=== PATIENT | female | born 1955 | race Caucasian/White ===

== ENCOUNTER 2017-04-10 21:12 | Emergency (ER) | payer OTHER ==
[2017-04-10 21:29] VITALS: RESP 18
[2017-04-10] MEDS ORDERED: TOPICAL SKIN ADHESIVE 1 EACH AMP TOPICAL ONE (22:28)
--- NOTE | 2017-04-10 23:47 | ED ---
Wound/Laceration HPI - General Chief Complaint: Wound/Laceration Stated Complaint: Bleed Post Sx-Pt on Blood Thinner Time Seen by Provider: 04/10/17 22:05 Source: patient, RN notes reviewed Mode of arrival: wheelchair Limitations: no limitations - History of Present Illness Initial Comments: 62-year-old female presents emergency department chief complaint of bleeding incision to the left leg. Patient had a cyst removed today at the doctor's office and has noticed some bleeding from the area. Patient states that she was concerned so she thought they should be seen. Patient states that he tried direct pressure home which did not stop the bleeding. Patient denies any recent fever, chills, shortness of breath, chest pain, back pain, abdominal pain, nausea vomiting, numbness or tingling, dysuria or hematuria, constipation or diarrhea, headaches or visual changes, or any other current symptoms. - Related Data Home Medications Medication Instructions Recorded Confirmed Potassium Chloride [K-Tab ER] 10 meq PO DAILY 07/24/16 04/10/17 Furosemide [Lasix] 20 mg PO DAILY 04/10/17 04/10/17 Magnesium Slow 71.5mg 71.5 mg PO BID 04/10/17 04/10/17 Metoprolol Tartrate [Lopressor] 12.5 mg PO DAILY 04/10/17 04/10/17 Omeprazole [PriLOSEC] 20 mg PO DAILY 04/10/17 04/10/17 Rivaroxaban [Xarelto] 20 mg PO HS 04/10/17 04/10/17 Previous Rx's Medication Instructions Recorded Lisinopril [Zestril] 5 mg PO DAILY #30 tab 02/14/16 Flecainide [Tambocor] 100 mg PO Q12HR tab 07/26/16 Allergies Allergy/AdvReac Type Severity Reaction Status Date / Time CARDIOVERSION PAD AdvReac Unknown RED RASH, Uncoded 07/24/16 11:42 ITCHING FROM PAD USED ON CHEST FOR CARDIOVERSION. Review of Systems ROS Statement: Those systems with pertinent positive or pertinent negative responses have been documented in the HPI. ROS Other: All systems not noted in ROS Statement are negative. Past Medical History Past Medical History: Atrial Fibrillation, Heart Failure, GERD/Reflux, Hypertension Additional Past Medical History / Comment(s): PALPITATIONS, HX OF BRAIN ANEURYSM IN [place] SEE CARDIOLOGY H & P, Obesity. History of Any Multi-Drug Resistant Organisms: None Reported Past Surgical History: Appendectomy, Hysterectomy, Tonsillectomy Additional Past Surgical History / Comment(s): D & C'S Past Anesthesia/Blood Transfusion Reactions: Motion Sickness, Postoperative Nausea & Vomiting (PONV) Additional Past Anesthesia/Blood Transfusion Reaction / Comment(s): SISTER =PONV Past Psychological History: No Psychological Hx Reported Smoking Status: Never smoker - Past Family History Father Family Medical History: AICD/Pacemaker Mother Family Medical History: Congestive Heart Failure (CHF) General Exam - General Exam Comments Initial Comments: General: The patient is awake and alert, in no distress, and does not appear acutely ill. Neck: The neck is supple, there is no tenderness. Cardiovascular: There is a regular rate and rhythm. No murmur, rub or gallop is appreciated. Respiratory: Lungs are clear to auscultation, respirations are non-labored, breath sounds are equal. No wheezes, stridor, rales, or rhonchi. Musculoskeletal: Sensation intact with 2+ pulses of left lower externa. Full range of motion of left knee and left ankle. Patient does appear to have a laceration that has 3 sutures to the anterior left danielson that does have some bruising noted. 5 out of 5 muscle strength testing. No associated hematoma noted. Neurological: CN II-XII intact, There are no obvious motor or sensory deficits. Coordination appears grossly intact. Speech is normal. Skin: Skin is warm and dry and no rashes or lesions are noted. Psychiatric: Normal mood and affect. Limitations: no limitations Course Vital Signs 04/10/17 21:27 Temperature 98.8 F Pulse Rate 50 L Respiratory 18 Rate Blood Pressure 146/60 O2 Sat by Pulse 99 Oximetry Medical Decision Making - Medical Decision Making 62-year-old female from chief complaint of bleeding from her left danielson. At this time the bleeding was stopped with Dermabond. At this time we did discuss care follow-up return parameters. We discussed all the patient's family's questions. He stated the João they are in agreement with the plan. All questions have been answered. They will be discharged. Disposition Clinical Impression: Bleeding at insertion site Disposition: HOME SELF-CARE Condition: Stable Instructions: Skin Adhesive Care (ED) Additional Instructions: Please use medication as discussed. Please follow up with family doctor if symptoms have not improved over the next two days. Please return to the emergency room if your symptoms increase or worsen or for any other concerns. Referrals: Jordyn Andrews MD [Primary Care Provider] - 1-2 days Time of Disposition: 23:46
[2017-04-10 23:54] VITALS: BP 148/67; PULSE 62; TEMP 98
== END 2017-04-10 23:54 | disposition home or self-care (01) ==
LOC: EC 21:12
DX: L76.22 Postprocedural hemorrhage of skin and subcutaneous tissue following other procedure (principal); I48.91 Unspecified atrial fibrillation; K21.9 Gastro-esophageal reflux disease without esophagitis; I10 Essential (primary) hypertension; Z86.79 Personal history of other diseases of the circulatory system; I50.9 Heart failure, unspecified; Z88.8 Allergy status to other drugs, medicaments and biological substances; Z79.899 Other long term (current) drug therapy; Z79.01 Long term (current) use of anticoagulants; E66.9 Obesity, unspecified
CPT/HCPCS: 12001; 99282

== ENCOUNTER → 2017-04-14 | Outpatient (CLI) | payer OTHER ==
[2017-04-14 08:29] LABS: Basophils # (A) 0.1 k/uL (0-0.2); Basophils % (A) 1 %; CH 29.6; CHCM 32.1; Eosinophils # (A) 0.5 k/uL (0-0.7); Eosinophils % (A) 6 %; HCT 42.5 % (34.0-46.0); HDW 2.65; Luc # (Auto) 0.13; Luc % (Auto) 2; Lymphocytes % (A) 24 %; MCH 30.5 pg (25.0-35.0); MCHC 32.9 g/dL (31.0-37.0); MCV 92.7 fL (80.0-100.0); Mean Platelet Volume 7.8; Monocytes # (A) 0.4 k/uL (0-1.0); Monocytes % (A) 5 %; Neutrophils % (A) 63 %; RBC 4.58 m/uL (3.80-5.40); RDW 14.3 % (11.5-15.5); WBC (Perox) 8.38
[2017-04-14 08:38] LABS: ALT 28 U/L (9-52); AST 12 U/L (14-36); Alkaline Phosphatase 76 U/L (38-126); Anion Gap 8 mmol/L; Blood Urea Nitrogen 12 mg/dL (7-17); Calcium 9.1 mg/dL (8.4-10.2); Carbon Dioxide 28 mmol/L (22-30); Chloride 107 mmol/L (98-107); Cholesterol 209 mg/dL (<200); Glucose 82 mg/dL (74-99); HDL Cholesterol 57 mg/dL (40-60); Non-African American GFR(MDRD) >60 (>60 ml/min/1.73 sqM); Sodium 143 mmol/L (137-145); Total Bilirubin 0.5 mg/dL (0.2-1.3); Triglycerides 110 mg/dL (<150)
[2017-04-14 09:24] LABS: Total Protein 6.4 g/dL (6.3-8.2)
== END | disposition home or self-care (01) ==
LOC: LABWHC1 07:53
PROVIDERS: ATTEND Family Medicine
DX: I10 Essential (primary) hypertension (principal)
CPT/HCPCS: 36415; 80053; 80061; 84443; 85025

== ENCOUNTER 2018-03-25 18:56 | Emergency (ER) | payer BC ==
[2018-03-25 19:31] VITALS: RESP 18
[2018-03-25] MEDS ORDERED: MORPHINE SULFATE 2 MG/ML SYRINGE IVP STA (20:39)
[2018-03-25] MEDS ORDERED: ONDANSETRON 4 MG/2 ML VIAL IVP STA (20:39)
--- NOTE | 2018-03-25 20:51 | ED ---
General Adult HPI - General Chief complaint: Extremity Problem,Nontraumatic Stated complaint: LEG CRAMPS FROM HIPS TO KNEES Time Seen by Provider: 03/25/18 20:27 Source: patient, RN notes reviewed Mode of arrival: wheelchair Limitations: no limitations - History of Present Illness Initial comments: Patient is 62-year-old female presenting to the emergency room today with chief complaint of right hip pain radiating to the right knee. Patient does admit that she's had some symptoms of diarrhea over the last few days. She states this is not her main reason for coming to the emergency room today. She states last night she began having increased pain from the right hip shooting down to the right knee. She admits that she feels some similar sensation on the left ear she states she's had similar complaint to this several years ago. Denies any bowel or bladder incontinence retention. Denies any saddle anesthesia. Patient denies any injury or trauma to the area. She states it's worse with flexion and extension at the right hip. Denies any other complaint currently. Patient denies any recent fever, chills, shortness of breath, chest pain, back pain, vomiting, numbness or tingling, dysuria or hematuria, constipation, headaches or visual changes, or any other complaints. - Related Data Home Medications Medication Instructions Recorded Confirmed Potassium Chloride [K-Tab ER] 10 meq PO DAILY 07/24/16 03/25/18 Furosemide [Lasix] 20 mg PO DAILY 04/10/17 03/25/18 Magnesium Slow 71.5mg 71.5 mg PO BID 04/10/17 03/25/18 Metoprolol Tartrate [Lopressor] 12.5 mg PO DAILY 04/10/17 03/25/18 Omeprazole [PriLOSEC] 20 mg PO DAILY 04/10/17 03/25/18 Rivaroxaban [Xarelto] 20 mg PO HS 04/10/17 03/25/18 Dicyclomine [Bentyl] 10 mg PO BID PRN 03/25/18 03/25/18 L.acidoph,Paracasei, B.lactis 1 cap PO DAILY 03/25/18 03/25/18 [Probiotic] Previous Rx's Medication Instructions Recorded Lisinopril [Zestril] 5 mg PO DAILY #30 tab 02/14/16 Flecainide [Tambocor] 100 mg PO Q12HR tab 07/26/16 Orphenadrine [Norflex] 100 mg PO Q12H #20 tablet.er 03/25/18 Allergies Allergy/AdvReac Type Severity Reaction Status Date / Time CARDIOVERSION PAD AdvReac Unknown RED RASH, Uncoded 03/25/18 19:31 ITCHING FROM PAD USED ON CHEST FOR CARDIOVERSION. Review of Systems ROS Statement: Those systems with pertinent positive or pertinent negative responses have been documented in the HPI. ROS Other: All systems not noted in ROS Statement are negative. Past Medical History Past Medical History: Atrial Fibrillation, Heart Failure, GERD/Reflux, Hypertension Additional Past Medical History / Comment(s): PALPITATIONS, HX OF BRAIN ANEURYSM IN [place] SEE CARDIOLOGY H & P, Obesity. History of Any Multi-Drug Resistant Organisms: None Reported Past Surgical History: Appendectomy, Hysterectomy, Tonsillectomy Additional Past Surgical History / Comment(s): D & C'S Past Anesthesia/Blood Transfusion Reactions: Motion Sickness, Postoperative Nausea & Vomiting (PONV) Additional Past Anesthesia/Blood Transfusion Reaction / Comment(s): SISTER =PONV Past Psychological History: No Psychological Hx Reported Smoking Status: Never smoker Past Alcohol Use History: None Reported Past Drug Use History: None Reported - Past Family History Father Family Medical History: AICD/Pacemaker Mother Family Medical History: Congestive Heart Failure (CHF) General Exam - General Exam Comments Initial Comments: General: The patient is awake and alert, in no distress, and does not appear acutely ill. Eye: Pupils are equal, round and reactive to light, extra-ocular movements are intact. No nystagmus. There is normal conjunctiva bilaterally. No signs of icterus. Ears, nose, mouth and throat: There are moist mucous membranes and no oral lesions. Neck: The neck is supple, there is no tenderness or JVD. Cardiovascular: There is a regular rate and rhythm. No murmur, rub or gallop is appreciated. Respiratory: Lungs are clear to auscultation, respirations are non-labored, breath sounds are equal. No wheezes, stridor, rales, or rhonchi. Musculoskeletal: Patient shows limited range of motion of the right hip with flexion and extension due to pain. No specific bony tenderness on palpation. Sensation intact. Pulses equal bilaterally 2+. Neurological: A&O x 3. CN II-XII intact, There are no obvious motor or sensory deficits. Coordination appears grossly intact. Speech is normal. Skin: Skin is warm and dry and no rashes or lesions are noted. Psychiatric: Cooperative, appropriate mood & affect, normal judgment. Limitations: no limitations Course Vital Signs 03/25/18 19:28 Temperature 99.0 F Pulse Rate 67 Respiratory 18 Rate Blood Pressure 103/62 O2 Sat by Pulse 96 Oximetry Medical Decision Making - Medical Decision Making Patient reexamined at this time does admit to improving here in the emergency room after pain medications and muscle relaxer. Patient labs been reviewed does show potassium 2.9. Patient does take potassium supplement home. She does not that she had diarrhea last 2-3 days. May labs been reviewed. At this time patient doing well. Given potassium 40 mEq here in the emergency room by mouth. Patient will be discharged home advised to double her potassium intake for the next 2 days following up with family doctor have potassium rechecked. Will be given muscle laxer to continue for her symptoms. - Lab Data Result diagrams: 03/25/18 21:06 03/25/18 21:06 Lab Results 03/25/18 03/25/18 Range/Units 21:06 21:06 WBC 7.7 (3.8-10.6) k/uL RBC 4.51 (3.80-5.40) m/uL Hgb 13.9 (11.4-16.0) gm/dL Hct 40.0 (34.0-46.0) % MCV 88.6 (80.0-100.0) fL MCH 30.8 (25.0-35.0) pg MCHC 34.8 (31.0-37.0) g/dL RDW 14.3 (11.5-15.5) % Plt Count 252 (150-450) k/uL Neutrophils % 70 % Lymphocytes % 15 % Monocytes % 11 % Eosinophils % 1 % Basophils % 1 % Neutrophils # 5.4 (1.3-7.7) k/uL Lymphocytes # 1.2 (1.0-4.8) k/uL Monocytes # 0.9 (0-1.0) k/uL Eosinophils # 0.1 (0-0.7) k/uL Basophils # 0.0 (0-0.2) k/uL Sodium 138 (137-145) mmol/L Potassium 2.9 L* (3.5-5.1) mmol/L Chloride 102 (98-107) mmol/L Carbon Dioxide 21 L (22-30) mmol/L Anion Gap 15 mmol/L BUN 9 (7-17) mg/dL Creatinine 0.74 (0.52-1.04) mg/dL Est GFR (CKD-EPI)AfAm >90 (>60 ml/min/1.73 sqM) Est GFR (CKD-EPI)NonAf 88 (>60 ml/min/1.73 sqM) Glucose 102 H (74-99) mg/dL Calcium 9.0 (8.4-10.2) mg/dL Total Bilirubin 0.6 (0.2-1.3) mg/dL AST 13 L (14-36) U/L ALT 25 (9-52) U/L Alkaline Phosphatase 77 (38-126) U/L Total Protein 6.6 (6.3-8.2) g/dL Albumin 4.1 (3.5-5.0) g/dL Disposition Clinical Impression: Hypokalemia, Muscle cramps Disposition: HOME SELF-CARE Condition: Good Instructions: Muscle Cramp (ED) Additional Instructions: Please increase potassium supplement at home for the next 2 days. Please follow -up the family doctor to have potassium rechecked. Please use muscle relaxant for her symptoms but be aware that it may make you drowsy. Please return to emergency room if the symptoms increase or worsen. Prescriptions: Orphenadrine [Norflex] 100 mg PO Q12H #20 tablet.er Is patient prescribed a controlled substance at d/c from ED?: No Referrals: Jordyn Andrews MD [Primary Care Provider] - 1-2 days Time of Disposition: 22:36
[2018-03-25] MEDS ORDERED: ORPHENADRINE 30 MG/ML 2 ML VIAL IVP STA (21:35)
[2018-03-25 21:57] LABS: Basophils % (A) 1 %; Eosinophils # (A) 0.1 k/uL (0-0.7); Eosinophils % (A) 1 %; HGB 13.9 gm/dL (11.4-16.0); Lymphocytes # (A) 1.2 k/uL (1.0-4.8); Lymphocytes % (A) 15 %; MCH 30.8 pg (25.0-35.0); MCHC 34.8 g/dL (31.0-37.0); MCV 88.6 fL (80.0-100.0); Mean Platelet Volume 7.1; Monocytes # (A) 0.9 k/uL (0-1.0); Monocytes % (A) 11 %; Neutrophils # (A) 5.4 k/uL (1.3-7.7); Neutrophils % (A) 70 %; Platelet Count 252 k/uL (150-450); RBC 4.51 m/uL (3.80-5.40); RDW 14.3 % (11.5-15.5); WBC 7.7 k/uL (3.8-10.6)
--- NOTE | 2018-03-25 22:06 | XR ---
PROCEDURE: XR Hip RT and AP Pelvis 3 views DATE AND TIME: 03/25/2018 9:56 PM REFERRING PHYSICIAN: Lamont Ackerman CLINICAL INDICATION: PHH, Pain without injury. TECHNIQUE: Department protocol. COMPARISON: None FINDINGS: There is no fracture or malalignment. Moderate bilateral hip osteoarthritis changes are noted. No focal skeletal findings. The soft tissues are unremarkable. IMPRESSION: NO ACUTE PROCESS.
[2018-03-25 22:10] LABS: ALT 25 U/L (9-52); AST 13 U/L (14-36); Albumin 4.1 g/dL (3.5-5.0); Alkaline Phosphatase 77 U/L (38-126); Anion Gap 15 mmol/L; Blood Urea Nitrogen 9 mg/dL (7-17); Carbon Dioxide 21 mmol/L (22-30); Chloride 102 mmol/L (98-107); Glucose 102 mg/dL (74-99); Sodium 138 mmol/L (137-145); Total Bilirubin 0.6 mg/dL (0.2-1.3); Total Protein 6.6 g/dL (6.3-8.2)
[2018-03-25 22:20] LABS: Potassium 2.9 mmol/L (3.5-5.1)
[2018-03-25] MEDS ORDERED: POTASSIUM CHLORIDE ER 20 MEQ TAB.ER PO STA (22:25)
[2018-03-25] MEDS ORDERED: LORazepam 2 MG/ML INJ IV STA (22:35)
[2018-03-25 22:46] VITALS: BP 131/56; PULSE 70; TEMP 98.7
[2018-03-25] MEDS ORDERED: ONDANSETRON 4 MG ODT STARTER PACK 2 TAB BTL PO STA (23:01)
== END 2018-03-25 23:10 | disposition home or self-care (01) ==
LOC: EC 18:56
DX: E87.6 Hypokalemia (principal); I11.0 Hypertensive heart disease with heart failure; I50.9 Heart failure, unspecified; I48.91 Unspecified atrial fibrillation; K21.9 Gastro-esophageal reflux disease without esophagitis; E66.9 Obesity, unspecified; Z79.01 Long term (current) use of anticoagulants; Z79.899 Other long term (current) drug therapy; Z91.09 Other allergy status, other than to drugs and biological substances; Z68.34 Body mass index [BMI] 34.0-34.9, adult
CPT/HCPCS: 36415; 80053; 85025; 73502; 99283; 96374; 96375 ×3; J2060; J2360; J2405; J2270; S0119

== ENCOUNTER → 2018-04-10 | Outpatient (CLI) | payer BC ==
--- NOTE | 2018-04-10 14:49 | MR ---
MRCP HISTORY: Obstruction of bile duct Correlation to CT abdomen pelvis 04/06/2016, ultrasound gallbladder 04/15/2016 Multiplanar multisequence imaging through the biliary system, three-dimensional post processing was p erformed. There is abnormal signal suspected within the cecum which correlates with patient's CT finding, bowel surveillance has not been performed then it should be considered. The liver is enlarged. The gallbladder is hydropic and there are multiple luminal filling defects consistent with stones, th ere is a large stone in the region of the gallbladder neck. No evident stone within the common bile d uct. Toward the distal common bile duct, the duct measures 10 mm. At the distal duct however there is a rattail appearance compatible with possible underlying mass. No evident pancreatic ductal dilatati on. Lower pole cystic focus measuring 2.5 cm noted in the right kidney, upper pole cystic focus left kidney 15 mm. Adrenal glands unremarkable. Spleen unremarkable. IMPRESSION: Hydropic gallbladder with cholelithiasis. Gallbladder shows a stone in neck. There is an abrupt caliber change at the distal common bile duct. Consider gastroenterology consult for ERCP. Fin dings in the cecum as described. Consider bowel surveillance if this has not been performed.
== END | disposition home or self-care (01) ==
LOC: RADMRIMAIN 10:16
PROVIDERS: ATTEND Family Medicine
DX: K80.20 Calculus of gallbladder without cholecystitis without obstruction (principal); N28.1 Cyst of kidney, acquired
CPT/HCPCS: 74181

== ENCOUNTER → 2018-11-23 | Outpatient (CLI) | payer OTHER ==
[2018-11-23 16:45] LABS: Basophils # (A) 0.1 k/uL (0-0.2); Basophils % (A) 1 %; Eosinophils # (A) 0.3 k/uL (0-0.7); Eosinophils % (A) 3 %; HCT 43.5 % (34.0-46.0); HGB 14.2 gm/dL (11.4-16.0); Lymphocytes # (A) 2.1 k/uL (1.0-4.8); Lymphocytes % (A) 22 %; MCH 30.5 pg (25.0-35.0); MCHC 32.7 g/dL (31.0-37.0); MCV 93.2 fL (80.0-100.0); Mean Platelet Volume 7.3; Monocytes # (A) 0.5 k/uL (0-1.0); Monocytes % (A) 5 %; Neutrophils # (A) 6.5 k/uL (1.3-7.7); Neutrophils % (A) 68 %; Platelet Count 288 k/uL (150-450); RBC 4.67 m/uL (3.80-5.40); RDW 14.4 % (11.5-15.5); WBC 9.5 k/uL (3.8-10.6)
[2018-11-23 23:22] LABS: Albumin 4.6 g/dL (3.80-4.90); Albumin/Globulin Ratio 1.92 (1.60-3.17); Anion Gap 8.9 mmol/L (4.00-12.00); Calcium 9.6 mg/dL (8.7-10.3); Carbon Dioxide 26.1 mmol/L (21.6-31.8); Globulin 2.4 g/dL (1.6-3.3); Magnesium 1.9 mg/dL (1.5-2.4); Potassium 4.4 mmol/L (3.5-5.5); Total Bilirubin 0.5 mg/dL (0.3-1.2)
== END ==
LOC: LABWHC1 15:54
PROVIDERS: ATTEND Internal Medicine Cardiovascular Disease
DX: I48.91 Unspecified atrial fibrillation (principal)
CPT/HCPCS: 36415; 80053; 83735; 85025

== ENCOUNTER → 2019-12-06 | Outpatient (CLI) | payer OTHER ==
[2019-12-06 13:41] LABS: Basophils # (A) 0.1 k/uL (0-0.2); Basophils % (A) 1 %; Eosinophils # (A) 0.2 k/uL (0-0.7); Eosinophils % (A) 3 %; HCT 44.8 % (34.0-46.0); HGB 14.5 gm/dL (11.4-16.0); Lymphocytes # (A) 1.9 k/uL (1.0-4.8); Lymphocytes % (A) 25 %; MCH 29.8 pg (25.0-35.0); MCHC 32.4 g/dL (31.0-37.0); Monocytes # (A) 0.4 k/uL (0-1.0); Monocytes % (A) 5 %; Neutrophils # (A) 4.8 k/uL (1.3-7.7); Neutrophils % (A) 65 %; Platelet Count 278 k/uL (150-450); RBC 4.87 m/uL (3.80-5.40); RDW 14.1 % (11.5-15.5); WBC 7.5 k/uL (3.8-10.6)
[2019-12-06 14:05] LABS: ALT 15 U/L (4-34); AST 25 U/L (14-36); African American GFR (CKD) >90 (>60 ml/min/1.73 sqM); Albumin 4.2 g/dL (3.5-5.0); Albumin/Globulin Ratio 1.4; Alkaline Phosphatase 91 U/L (38-126); Anion Gap 8 mmol/L; Blood Urea Nitrogen 17 mg/dL (7-17); Calcium 9.1 mg/dL (8.4-10.2); Carbon Dioxide 23 mmol/L (22-30); Chloride 106 mmol/L (98-107); Globulin 2.9 g/dL; Glucose 85 mg/dL (74-99); Non-African American GFR(CKD) >90 (>60 ml/min/1.73 sqM); Potassium 4.7 mmol/L (3.5-5.1); Sodium 137 mmol/L (137-145); Total Bilirubin 0.5 mg/dL (0.2-1.3); Total Protein 7.1 g/dL (6.3-8.2)
== END | disposition home or self-care (01) ==
LOC: LABWHC1 12:12
PROVIDERS: ATTEND Internal Medicine Cardiovascular Disease
DX: I48.91 Unspecified atrial fibrillation (principal)
CPT/HCPCS: 36415; 80053; 85025

== ENCOUNTER → 2020-08-02 | Day surgery (SDC) | payer OTHER ==
[2020-08-01 10:28] VITALS: BMI 39.4
[~2020-08-02] MED LIST: FLECAINIDE 50 MG TAB PO STA; PROPOFOL 10 MG/ML 20 ML VIAL IV ONE; SODIUM CHLORIDE 0.9% 1,000 ML IV SCH; SODIUM CHLORIDE 0.9% 500 ML 500 ML IV ONE
[2020-08-02 11:06] VITALS: TEMP 98.1
[2020-08-02 11:15] VITALS: RESP 16
[2020-08-02 11:25] VITALS: BP 100/55; PULSE 66
--- NOTE | 2020-08-02 12:19 | P.PCN ---
Date of Procedure: 08/02/20 Preoperative Diagnosis: Persistent atrial fibrillation, history of CHF Postoperative Diagnosis: Successful conversion to sinus rhythm Procedure(s) Performed: Cardioversion Description of Procedure: This 65-year-old female is brought in for elective cardioversion. Patient has history of persistent atrial fibrillation and had a cardioversion in the past and maintaining sinus rhythm for several years. Recently she was found to be any back in atrial fibrillation with controlled ventricular response. Patient has been on anticoagulations therapy. She is advised to have a cardioversion. Patient was brought in a fasting state. She was prepped and draped in the usual fashion. Anteroposterior paddles were applied. Patient was given IV sedation with propofol by department of anesthesia. A single shock of 150 J was applied. Patient converted back to sinus rhythm. No immediate complications. Final impression: #1. Successful cardioversion #2. No complications. Plan: Patient to flecainide will be increased to 150 Mg by mouth twice a day. Rest of the medication be continued. Patient will be discharged home later today. Follow-up in the office in one week
[2020-08-02 13:02] LABS: African American GFR (CKD) >90 (>60 ml/min/1.73 sqM); Anion Gap 9 mmol/L; Blood Urea Nitrogen 17 mg/dL (7-17); Carbon Dioxide 24 mmol/L (22-30); Chloride 106 mmol/L (98-107); Glucose 117 mg/dL (74-99); Non-African American GFR(CKD) >90 (>60 ml/min/1.73 sqM); Sodium 139 mmol/L (137-145)
== END | disposition home or self-care (01) ==
LOC: CATHCVL 09:18
PROVIDERS: ATTEND Internal Medicine Cardiovascular Disease
DX: I48.19 Other persistent atrial fibrillation (principal); I11.0 Hypertensive heart disease with heart failure; I50.22 Chronic systolic (congestive) heart failure; I42.0 Dilated cardiomyopathy; E66.9 Obesity, unspecified; I67.1 Cerebral aneurysm, nonruptured; K21.9 Gastro-esophageal reflux disease without esophagitis; Z79.899 Other long term (current) drug therapy; Z79.01 Long term (current) use of anticoagulants; Z68.41 Body mass index [BMI] 40.0-44.9, adult; Z82.49 Family history of ischemic heart disease and other diseases of the circulatory system
CPT/HCPCS: 92960; 80048; J2704

== ENCOUNTER → 2021-05-25 | Outpatient (CLI) | payer MEDICARE, OTHER ==
[2021-05-26 11:01] LABS: T4, Free (Free Thyroxine) 1.1 ng/dL (0.80-1.80)
[2021-05-26 11:17] LABS: African American GFR (CKD) 77.8 (60.0-200.0); Anion Gap 10.6 mmol/L (4.00-12.00); BUN/Creat Ratio 21.11 Ratio (12.00-20.00); Carbon Dioxide 23.4 mmol/L (21.6-31.8); Non-African American GFR(CKD) 67.1 (60.0-200.0); Potassium 4.5 mmol/L (3.5-5.5)
== END | disposition home or self-care (01) ==
LOC: LABWHC1 15:56
PROVIDERS: ATTEND Internal Medicine Cardiovascular Disease
DX: I50.9 Heart failure, unspecified (principal)
CPT/HCPCS: 36415; 80048; 84439; 84443

== ENCOUNTER 2021-08-20 14:01 | Emergency (ER) | payer MEDICARE, OTHER ==
[2021-08-20 17:23] VITALS: BP 149/63; PULSE 53; RESP 20; TEMP 97.4
[2021-08-20] MEDS ORDERED: MORPHINE SULFATE 2 MG/ML SYRINGE IM ONE (19:11)
[2021-08-20] MEDS ORDERED: ORPHENADRINE 30 MG/ML 2 ML VIAL IM STA (19:11)
--- NOTE | 2021-08-20 20:03 | XR ---
EXAMINATION TYPE: XR lumbar spine 2 or 3V DATE OF EXAM: 08/20/2021 COMPARISON: NONE HISTORY: Pain TECHNIQUE: 3 views FINDINGS: Lumbar vertebra have fairly normal alignment. There is 20% anterior wedging of L1 vertebra that appears old. The abdominal aorta is atheromatous. Posterior elements are intact. Sacroiliac join ts are intact. IMPRESSION: Mild wedging of L1 vertebra with depression of the superior endplate. This is probably ol d but is a change compared to the old CT scan of 04/06/2016.
--- NOTE | 2021-08-20 20:23 | ED ---
Back Pain HPI - General Chief Complaint: Back Pain/Injury Stated Complaint: Back Pain Time Seen by Provider: 08/20/21 18:52 Source: patient, family, RN notes reviewed Limitations: no limitations - History of Present Illness Initial Comments: Patient is a 66-year-old female that presents to the emergency department complaining of right-sided low back pain with radiation up to her right shoulder. She notes that she tripped approximately 10 days ago landing on her buttocks. She notes that she's been having muscle spasms or spasm-like pain for the past several days so she decided come emergency room to get evaluated. She denied any saddle anesthesia bladder bowel incontinence or retention. She was otherwise well-appearing. She denied chest pain first breath headache nausea vomiting diarrhea constipation fever fatigue chills. - Related Data Home Medications Medication Instructions Recorded Confirmed Potassium Chloride [K-Tab ER] 10 meq PO DAILY 07/24/16 08/02/20 Furosemide [Lasix] 20 mg PO DAILY 04/10/17 08/02/20 Magnesium Chloride [Slow-Mag] 71.5 mg PO BID 04/10/17 08/02/20 Metoprolol Tartrate [Lopressor] 12.5 mg PO DAILY 04/10/17 08/02/20 Omeprazole [PriLOSEC] 20 mg PO DAILY 04/10/17 08/02/20 Rivaroxaban [Xarelto] 20 mg PO 1700 04/10/17 08/02/20 Spironolactone [Aldactone] 25 mg PO DAILY 08/01/20 08/02/20 Previous Rx's Medication Instructions Recorded lisinopriL [Zestril] 5 mg PO DAILY #30 tab 02/14/16 Flecainide [Tambocor] 150 mg PO Q12HR #60 tablet 08/02/20 Baclofen [Lioresal] 5 mg PO TID 10 Days #30 tablet 08/20/21 Allergies Allergy/AdvReac Type Severity Reaction Status Date / Time CARDIOVERSION PAD AdvReac Unknown RED RASH, Uncoded 08/20/21 17:23 ITCHING FROM PAD USED ON CHEST FOR CARDIOVERSION. Review of Systems ROS Statement: Those systems with pertinent positive or pertinent negative responses have been documented in the HPI. ROS Other: All systems not noted in ROS Statement are negative. Past Medical History Past Medical History: Atrial Fibrillation, Heart Failure, GERD/Reflux, Hypertension Additional Past Medical History / Comment(s): PALPITATIONS, HX OF BRAIN ANEURYSM IN [place] OF [place]., SEE Dr. Baron H & P History of Any Multi-Drug Resistant Organisms: None Reported Past Surgical History: Appendectomy, Hysterectomy, Tonsillectomy Additional Past Surgical History / Comment(s): D & C'S, cardioversion x2 Past Anesthesia/Blood Transfusion Reactions: Motion Sickness, Postoperative Nausea & Vomiting (PONV) Additional Past Anesthesia/Blood Transfusion Reaction / Comment(s): SISTER =PONV Past Psychological History: No Psychological Hx Reported Smoking Status: Never smoker Past Alcohol Use History: None Reported Past Drug Use History: None Reported - Past Family History Father Family Medical History: AICD/Pacemaker Mother Family Medical History: Congestive Heart Failure (CHF) General Exam Limitations: no limitations General appearance: alert, in no apparent distress, obese Head exam: Present: atraumatic, normocephalic, normal inspection Eye exam: Present: normal appearance, PERRL, EOMI. Absent: scleral icterus, conjunctival injection, periorbital swelling ENT exam: Present: normal exam, mucous membranes moist Neck exam: Present: normal inspection Respiratory exam: Present: normal lung sounds bilaterally. Absent: respiratory distress, wheezes, rales, rhonchi, stridor Cardiovascular Exam: Present: regular rate, normal rhythm, normal heart sounds. Absent: systolic murmur, diastolic murmur, rubs, gallop, clicks Extremities exam: Present: normal inspection, full ROM, normal capillary refill. Absent: tenderness, pedal edema, joint swelling, calf tenderness Back exam: Present: normal inspection, tenderness (Right SI) Neurological exam: Present: alert, oriented X3 Psychiatric exam: Present: normal affect, normal mood Skin exam: Present: warm, dry, intact, normal color. Absent: rash Course Vital Signs 08/20/21 17:18 Temperature 97.4 F L Pulse Rate 53 L Respiratory 20 Rate Blood Pressure 149/63 O2 Sat by Pulse 99 Oximetry Medical Decision Making - Medical Decision Making 66-year-old female complaining of low back pain after falling 10 days ago. X-ray lumbar spine, 10 mg of Norflex, 2 mg of morphine ordered. X-ray shows a very mild L1 compression fracture age undetermined. Patient is agreeable discharge home with muscle relaxers with follow-up to primary care. Case discussed with Dr. Eric, patient discharge home. - Radiology Data Radiology results: report reviewed, image reviewed X-ray lumbar spine: Mild wedging of L1 vertebrae with depression of the superior endplate. This is probably old but is a change compared to old computed tomography scan. Disposition Clinical Impression: Compression fracture of L1 lumbar vertebra Disposition: HOME SELF-CARE Condition: Stable Instructions (If sedation given, give patient instructions): Acute Low Back Pain (ED) Additional Instructions: Please return to the Emergency Department if symptoms worsen or any other concerns. Follow-up with primary care 1-2 days. Take muscle relaxers as prescribed. Is patient prescribed a controlled substance at d/c from ED?: No Referrals: Jordyn Andrews MD [Primary Care Provider] - 1-2 days Time of Disposition: 20:23
== END 2021-08-20 20:34 | disposition home or self-care (01) ==
LOC: EC 14:01
DX: S32.010A Wedge compression fracture of first lumbar vertebra, initial encounter for closed fracture (principal); I11.0 Hypertensive heart disease with heart failure; I50.9 Heart failure, unspecified; K21.9 Gastro-esophageal reflux disease without esophagitis; I48.91 Unspecified atrial fibrillation; Z79.01 Long term (current) use of anticoagulants; Z79.899 Other long term (current) drug therapy; Z91.09 Other allergy status, other than to drugs and biological substances; W01.0XXA Fall on same level from slipping, tripping and stumbling without subsequent striking against object, initial encounter; Y92.009 Unspecified place in unspecified non-institutional (private) residence as the place of occurrence of the external cause
CPT/HCPCS: 72100; 99283; 96372; J2360; J2270

== ENCOUNTER → 2021-09-01 | Outpatient (CLI) | payer MEDICARE, OTHER ==
[2021-09-01 17:39] LABS: Basophils # (A) 0.08 X 10*3/uL (0.00-0.10); Basophils % (A) 0.8 %; Eosinophils # (A) 0.59 X 10*3/uL (0.04-0.35); Eosinophils % (A) 5.6 %; HCT 43.2 % (37.2-46.3); HGB 13.3 g/dL (12.0-15.0); Lymphocytes # (A) 1.84 X 10*3/uL (0.90-5.00); Lymphocytes % (A) 17.6 %; MCH 29.8 pg (27.0-32.0); MCHC 30.8 g/dL (32.0-37.0); MCV 96.6 fL (80.0-97.0); Mean Platelet Volume 10.7 fL (9.5-12.2); Monocytes # (A) 0.73 X 10*3/uL (0.20-1.00); Neutrophils # (A) 7.13 X 10*3/uL (1.80-7.70); Neutrophils % (A) 68.2 %; Platelet Count 264 X 10*3/uL (140-440); RBC 4.47 X 10*6/uL (4.10-5.20); RDW 14.9 % (11.5-14.5); WBC 10.45 X 10*3/uL (4.50-10.00)
[2021-09-01 18:31] LABS: ALT 26 U/L (8-44); AST 18 U/L (13-35); African American GFR (CKD) 100.2 (60.0-200.0); Albumin 4.2 g/dL (3.8-4.9); Albumin/Globulin Ratio 2.01 (1.60-3.17); Alkaline Phosphatase 112 U/L (41-126); BUN/Creat Ratio 20.82 Ratio (12.00-20.00); Blood Urea Nitrogen 15.2 mg/dL (9.0-27.0); Carbon Dioxide 21.4 mmol/L (20.0-27.5); Chloride 103 mmol/L (96-109); Chol/HDL Ratio 3.28 Ratio; Globulin 2.1 g/dL (1.6-3.3); Glucose 90 mg/dL (70-110); LDL Cholesterol,Calculated 137.2 mg/dL (0.0-131.0); Non-African American GFR(CKD) 86.4 (60.0-200.0); Potassium 4.2 mmol/L (3.5-5.5); Sodium 136 mmol/L (135-145); Total Protein 6.3 g/dL (6.2-8.2); VLDL Calculation 19.06 mg/dL (5.00-40.00)
== END | disposition home or self-care (01) ==
LOC: LABWHC1 09:54
PROVIDERS: ATTEND Family Medicine
DX: I10 Essential (primary) hypertension (principal)
CPT/HCPCS: 36415; 80053; 80061; 84443; 85025

== ENCOUNTER → 2022-07-17 | Outpatient (CLI) | payer MEDICARE, OTHER ==
--- NOTE | 2022-07-17 11:12 | BD ---
EXAMINATION TYPE: Axial Bone Density DATE OF EXAM: 07/17/2022 COMPARISON: NONE CLINICAL HISTORY: 67 years year old Female. ICD-10 CODE: Z78.0 asymptomatic menopausal stat Height: 5 FT 2 1/4 IN Weight: 250 FRAX RISK QUESTIONS: Alcohol (3 or more units per day): NO Family History (Parent hip fracture): NO Glucocorticoids (More than 3mos): NO (Ex: prednisone, prednisolone, methylprednisolone, dexamethasone, and hydrocortisone). History of Fracture in Adulthood: NO Secondary Osteoporosis: 1. Type 1 Diabetes: NO 2. Hyperthyroidism: NO 3. Menopause before 45: NO 4. Malnutrition: NO 5. Chronic liver disease: NO Rheumatoid Arthritis: NO Current Tobacco Use: NO RISK FACTORS HISTORY OF: Surgery to Spine/Hip(right/left)/Wrist (right/left): NO Family History of Osteoporosis: NO Active: NO Diet low in dairy products/other sources of calcium: NO Postmenopausal woman: YES Take estrogen and/or progesterone medications: NO Lost more than 2 inches in height since high school: YES Frequent falls: NO Poor Health: GOOD Hyperparathyroidism: NO Adrenal Insufficiency: NO MEDICATIONS: Additional Medications: FUROSEMIDE, LISINOPRIL, POTASSIUM, METOPROLOL, FLECAINIDE,XERALTO, SPIRONOL,L IPITOR,OMEPRAZOLE, SLOW MAG, BIT B 12 Additional History: EXAM MEASUREMENTS: Bone mineral densitometry was performed using the [employer] System. Bone mineral density as measured about the Lumbar spine is: ----- L1-L4(G/cm2): 0.791 T Score Values are as follows: ----- L1: -2.2 ----- L2: -3.3 ----- L3: -3.6 ----- L4: -3.8 ----- L1-L4: -3.2 BASELINE Bone mineral density about the R hip (g/cm2): 0.631 Bone mineral density about the L hip (g/cm2): 0.574 T Score values are as follows: -----R Neck: -2.9 -----L Neck: -3.3 -----R Total: -2.0 -----L Total: -2.3 BASELINE FRAX%s: The graph provided illustrates a 16.8 % chance for a major osteoporotic fx and a 5.5 % chance for the hips probability for fx in 10 years time. IMPRESSION: Osteoporosis (T Score less than -2.5). There is increased fracture risk and therapy is usually indicated based on age. Re-Screen 1-2 years. NOTE: T-SCORE=SD OF THE YOUNG ADULT MEAN.
== END | disposition home or self-care (01) ==
LOC: RADBDWWP 10:31
PROVIDERS: ATTEND Family Medicine
DX: M81.0 Age-related osteoporosis without current pathological fracture (principal)
CPT/HCPCS: 77080

== ENCOUNTER → 2022-08-16 | Outpatient (CLI) | payer MEDICARE, OTHER ==
--- NOTE | 2022-08-19 10:49 | MM ---
Reason for Exam: Screening (asymptomatic). Last mammogram was performed 3 year(s) and 3 month(s) ago. Patient History: Menarche at age 13. First Full-Term at age 22. Hysterectomy at age 41. Postmenopausal. Patient has history of breast feeding. Risk Values: Nicole 5 year model risk: 1.5%. NCI Lifetime model risk: 5.4%. Prior Study Comparison: 05/10/2019 Bilateral MG screening mammo w CAD - 2, Maryjo Pineda. Tissue Density: The breast tissue is heterogeneously dense. This may lower the sensitivity of mammography. Findings: Analyzed By CAD. Benign-appearing calcifications. There is no suspicious group of microcalcifications or new suspicious mass in either breast. Overall Assessment: Benign, BI-RAD 2 Management: Screening Mammogram of both breasts in 1 year. A clinical breast exam by your physician is recommended on an annual basis and results should be correlated with mammographic findings. [facility] will attempt to contact patient to return for supplemental views and ultrasound if indicated. Electronically signed and approved by: Bryn Seals DO
== END | disposition home or self-care (01) ==
LOC: RADMAMWWP 09:54
PROVIDERS: ATTEND Family Medicine
DX: Z12.31 Encounter for screening mammogram for malignant neoplasm of breast (principal); Z78.0 Asymptomatic menopausal state
CPT/HCPCS: 77063; 77067

== ENCOUNTER → 2022-10-02 | Outpatient (CLI) | payer MEDICARE, OTHER ==
[2022-10-02 16:32] LABS: Chol/HDL Ratio 2.48 Ratio; LDL Cholesterol,Calculated 84.2 mg/dL (0.0-131.0)
[2022-10-02 18:33] LABS: ALT 10 U/L (8-44); AST 10 U/L (13-35)
== END | disposition home or self-care (01) ==
LOC: LABWHC1 10:03
PROVIDERS: ATTEND Nurse Practitioner Adult Health
DX: E78.2 Mixed hyperlipidemia (principal)
CPT/HCPCS: 36415; 80061; 84450; 84460

== ENCOUNTER → 2023-03-26 | Outpatient (CLI) | payer MEDICARE, OTHER ==
[2023-03-26 15:02] LABS: Prothrombin Time 10.4 sec (9.0-12.0)
[2023-03-26 20:21] LABS: BUN/Creat Ratio 17.62 Ratio (12.00-20.00); Blood Urea Nitrogen 14.1 mg/dL (9.0-27.0); Calcium 9.3 mg/dL (8.7-10.3); Carbon Dioxide 23.3 mmol/L (21.6-31.8); Chloride 104 mmol/L (96-109); Glucose 100 mg/dL (70-110); Potassium 4.1 mmol/L (3.5-5.5); Sodium 140 mmol/L (135-145)
[2023-03-26 21:03] LABS: Basophils # (A) 0.08 X 10*3/uL (0.00-0.10); Basophils % (A) 0.8 %; Eosinophils # (A) 0.36 X 10*3/uL (0.04-0.35); Eosinophils % (A) 3.8 %; HCT 45.3 % (37.2-46.3); HGB 14.3 d/dL (12.0-15.0); Lymphocytes # (A) 2.28 X 10*3/uL (0.90-5.00); Lymphocytes % (A) 23.8 %; MCHC 31.6 d/dL (32.0-37.0); Mean Platelet Volume 11.2 FL (9.5-12.2); Monocytes # (A) 0.61 X 10*3/uL (0.20-1.00); Monocytes % (A) 6.4 %; NRBC Per 100 WBC 0 X 10*3/uL (0.00-0.01); Neutrophils # (A) 6.21 X 10*3/uL (1.80-7.70); Neutrophils % (A) 64.9 %; Platelet Count 264 X 10*3/uL (140-440); RBC 4.77 X 10*6/uL (4.10-5.20); RDW 14.5 % (11.5-14.5); WBC 9.57 X 10*3/uL (4.50-10.00)
== END | disposition home or self-care (01) ==
LOC: LABPAT 13:54
PROVIDERS: ATTEND Orthopaedic Surgery
DX: Z01.812 Encounter for preprocedural laboratory examination (principal); M17.11 Unilateral primary osteoarthritis, right knee; Z22.322 Carrier or suspected carrier of Methicillin resistant Staphylococcus aureus
CPT/HCPCS: 80048; 85025; 85610

== ENCOUNTER 2023-04-22 10:08 | Day surgery (SDC) | payer MEDICARE, OTHER ==
[2023-04-15 15:54] VITALS: BMI 42.9
--- NOTE | 2023-04-21 08:12 | P.HPOR ---
History of Present Illness H&P Date: 04/21/23 Chief Complaint: Right knee pain The patient is a 68-year-old female presents with progressive right knee pain for the past several years worsening recently. She's having swelling and stiffness. She has pain that limits her normal function and activities. She's tried medications in addition to therapy and an injection with minimal relief. Review of Systems As per HPI Past Medical History Past Medical History: Atrial Fibrillation, Heart Failure, GERD/Reflux, Hyperlipidemia, Hypertension, Osteoarthritis (OA) Additional Past Medical History / Comment(s): PALPITATIONS, HX OF BRAIN ANEURYSM IN [place] OF [place]., CURRENTLY HAS BLE EDEMA History of Any Multi-Drug Resistant Organisms: None Reported Past Surgical History: Appendectomy, Hysterectomy, Tonsillectomy Additional Past Surgical History / Comment(s): D & C'S, cardioversion x3, COLONOSCOPY, Past Anesthesia/Blood Transfusion Reactions: Motion Sickness, Postoperative Nausea & Vomiting (PONV) Additional Past Anesthesia/Blood Transfusion Reaction / Comment(s): SISTER =PONV Smoking Status: Never smoker - Past Family History Father Family Medical History: AICD/Pacemaker Mother Family Medical History: Congestive Heart Failure (CHF) Medications and Allergies Home Medications Medication Instructions Recorded Confirmed Type lisinopriL [Zestril] 5 mg PO DAILY #30 tab 02/14/16 04/15/23 Rx Potassium Chloride [K-Tab ER] 10 meq PO DAILY 07/24/16 04/15/23 History Furosemide [Lasix] 20 mg PO DAILY 04/10/17 04/15/23 History Magnesium Chloride [Slow-Mag] 71.5 mg PO BID 04/10/17 04/15/23 History Metoprolol Tartrate [Lopressor] 12.5 mg PO DAILY 04/10/17 04/15/23 History Omeprazole [PriLOSEC] 20 mg PO DAILY 04/10/17 04/15/23 History Rivaroxaban [Xarelto] 20 mg PO 1700 04/10/17 04/15/23 History Spironolactone [Aldactone] 25 mg PO DAILY 08/01/20 04/15/23 History Flecainide [Tambocor] 150 mg PO Q12HR #60 tablet 08/02/20 04/15/23 Rx Baclofen [Lioresal] 5 mg PO TID 10 Days #30 tablet 08/20/21 04/15/23 Rx Atorvastatin [Lipitor] 20 mg PO HS 04/15/23 04/15/23 History Calcium Carbonate [Calcium] 600 mg PO HS 04/15/23 04/15/23 History Cholecalciferol [Vitamin D3 (25 50 mcg PO HS 04/15/23 04/15/23 History Mcg = 1000 Iu)] Multivit with Calcium,Iron,Min 1 each PO HS 04/15/23 04/15/23 History [Women's Multivitamin] Ubidecarenone [Coenzyme Q10] 200 mg PO HS 04/15/23 04/15/23 History Allergies Allergy/AdvReac Type Severity Reaction Status Date / Time CARDIOVERSION PAD AdvReac Unknown RED RASH, Uncoded 04/15/23 15:30 ITCHING FROM PAD USED ON CHEST FOR CARDIOVERSION. Physical Examination - Knee right Appearance: effusion Effusion grade: grade 1 Valgus alignment in stance: 10 degrees Tenderness with palpation: anterior, lateral Pain: throughout ROM Gait: limping ROM: extension: -20 degrees ROM: flexion: 90 degrees Crepitus with motion: Yes Strength: extension: 5/5 Strength: flexion: 5/5 Meniscal tests: lateral meniscal tests: positive, lateral joint line pain: positive Results The patient is a well-developed well-nourished female approximately 5 foot 4, 240 pounds of endomorphic habitus. HEENT exam is nonfocal, neck is supple. She has pain with passive motion of the right hip. Straight leg raise is negative. Her distal neurovascular appears intact in the right lower extremity. - Diagnostic results Knee x-ray: image reviewed (3 views of the right knee obtained in the office shows severe lateral compartment osteoarthrosis with [id number] changes.) Assessment and Plan Assessment: Right knee severe lateral compartment osteoarthrosis Heart disease on anticoagulation Plan: I talked to the patient length regarding her condition along with treatment options. This point she is quite limited because of pain related to her right knee osteoarthrosis despite previous conservative measures. After thorough discussion she opts to proceed with surgery. We'll plan to see her right total knee arthroplasty. We'll reinstitute her anticoagulations postop.
[~2023-04-22 10:08] MED LIST changes: +ACETAMINOPHEN TAB 500 MG TAB PO PRN; +DEXAMETHASONE SOD PHOSPHATE 4 MG/ML 1 ML VIAL IV ONE; -FLECAINIDE 50 MG TAB PO STA; +LIDOCAINE 1% (10MG/ML) FOR IV START INTRADERMA PRN; +MELOXICAM 7.5 MG TAB PO PRN; +MIDAZOLAM 2 MG/2 ML VIAL IV PRN; +MORPHINE SULFATE 4 MG/ML SYRINGE IV PRN; +ONDANSETRON 4 MG/2 ML VIAL IVP ONE; -PROPOFOL 10 MG/ML 20 ML VIAL IV ONE; -SODIUM CHLORIDE 0.9% 1,000 ML IV SCH; -SODIUM CHLORIDE 0.9% 500 ML 500 ML IV ONE; +TRANEXAMIC 1,000 MG/100ML-NACL 1,000 MG in SALINE 1 100ML.BAG IVPB PRN; +fentaNYL (PF) 50 MCG/ML 2 ML AMP IVP PRN
[2023-04-22] MEDS: LACTATED RINGERS 1,000 ML IV SCH (10:57)
[2023-04-22] MEDS ORDERED: ONDANSETRON 4 MG/2 ML VIAL ONE (11:42)
[2023-04-22] MEDS ORDERED: MIDAZOLAM 2 MG/2 ML VIAL ONE (11:51)
[2023-04-22] MEDS ORDERED: ROCURONIUM 10 MG/ML (5 ML VIAL) IV ONE (11:51)
[2023-04-22] MEDS ORDERED: TRANEXAMIC 1,000 MG/100ML-NACL PREMIX BAG ONE (11:51)
[2023-04-22] MEDS ORDERED: fentaNYL (PF) 50 MCG/ML 2 ML AMP ONE (11:51)
[2023-04-22] MEDS ORDERED: hydrALAZINE HCL 20 MG/ML 1 ML VIAL ONE (11:51)
[2023-04-22] MEDS ORDERED: GLYCOPYRROLATE 0.2 MG/ML 2 ML VIAL ONE (11:51)
[2023-04-22] MEDS ORDERED: LIDOCAINE 2% INJ 20 MG/ML (2 ML VIAL) ONE (11:51)
[2023-04-22] MEDS ORDERED: SUCCINYLCHOLINE CHLORIDE 200 MG/10 ML VIAL IV ONE (11:51)
[2023-04-22] MEDS ORDERED: NEOSTIGMINE 1 MG/ML 10 ML VIAL ONE (11:51)
[2023-04-22] MEDS ORDERED: PROPOFOL 10 MG/ML 20 ML VIAL IV ONE (11:51)
[2023-04-22] MEDS ORDERED: ePHEDrine 50 MG/ML 1 ML VIAL ONE (11:51)
[2023-04-22] MEDS ORDERED: HYDROmorphone (PF) 1 MG/ML ONE (11:51)
[2023-04-22] MEDS ORDERED: SCOPOLAMINE 1 MG/72 HR PATCH TRANSDERM ONE (11:52)
[2023-04-22] MEDS ORDERED: ceFAZolin 1,000 MG in SODIUM CHLORIDE 0.9% 1,000 ML IRRIGATION ONE (12:25)
[2023-04-22] MEDS ORDERED: MAGNESIUM HYDROXIDE 2,400 MG/30 ML CUP PO PRN (13:35)
[2023-04-22] MEDS ORDERED: HYDROmorphone 0.5 MG/0.5 ML SYRINGE IVP PRN ×2 (13:35)
[2023-04-22] MEDS ORDERED: NALOXONE 0.4 MG/ML 1 ML VIAL IV PRN (13:35)
[2023-04-22] MEDS ORDERED: HYDROcodone/APAP 5-325MG 1 EACH TAB PO PRN (13:35)
[2023-04-22] MEDS ORDERED: LACTATED RINGERS 1,000 ML IV ONE (13:42)
--- NOTE | 2023-04-22 14:11 | P.OP ---
Date of Procedure: 04/22/23 Preoperative Diagnosis: Right knee severe tricompartmental osteoarthrosis Postoperative Diagnosis: Same Procedure(s) Performed: Right total knee arthroplastycementedposterior stabilized Implants: Depuy Attune size 6 cemented femoral component size 6 cemented tibial component, 14 x 50 mm tibial stem, 11 mm articular surface with 35 mm cemented patellar component. This is a posterior stabilized implant. Anesthesia: REN Surgeon: Antonino Barrera Noc Engineer #1: Rickey Son Estimated Blood Loss (ml): 50 Pathology: none sent Condition: stable Disposition: PACU Indications for Procedure: The patient is a 68-year-old female who presents with progressive right knee pain secondary to osteoporosis despite conservative measures. A discussion of the risks and benefits of operative intervention versus continued conservative measures with patient. She opted to proceed with surgery. Operative risks to include infection, neurovascular injury, development of blood clots, fracture, and possible component loosening/failure and need for subsequent procedures was discussed. Informed consent was obtained. Operative Findings: As below Description of Procedure: The patient was brought to the operating room, and after induction of spinal anesthesia the right lower extremity was prepped and draped in a normal fashion. The tourniquet was inflated to 270 mm marker. A longitudinal incision extending 3 finger breaths above the superior pole of patella extending to the medial aspect the tibial tubercle was then made. The skin and subcutaneous tissues were divided sharply. Electrocautery was used for hemostasis. A medial parapatellar arthrotomy was performed. The medial soft tissues to include the superficial and deep portions of the medial collateral ligament were elevated subperiosteally. I elevated the lateral collateral from lateral femoral epicondyle with electrocautery to aid in balancing. The patella was everted. A portion of the retropatellar fat pad was excised sharply. The anterior cruciate ligament was sacrificed. Blunt retractors were placed. A starting hole was made in the distal femur 1 cm anterior to the posterior cruciate ligament gregor gin. An intramedullary femoral guide was then inserted planning on 5 valgus distal cut with 9 mm distal resection. The cutting block was pinned in place. The distal cut was then made. The posterior referencing sizing guide was utilized. I felt size 6 was most appropriate. 3 of external rotation was built into the system and verified off the trans-epicondylar axis and the posterior condyles. The cutting block was pinned in place. The anterior, posterior, and chamfer cuts then made. Bone fragments were removed. The intercondylar guide was placed and the notch cut was made with a sagittal saw. The bone block was removed in one fragment. The trial component was then placed. There is good anterior to posterior and medial to lateral fit. The distal peg holes were drilled. The trial component was removed. Attention was then paid towards preparing the proximal tibia. An extra medullary guide was utilized in line with the tibial shaft and second metatarsal distally. I plann ed on 2 mm resection from the lateral compartment. The cutting block was pinned in place. The proximal tibial cut was then made. The bone was removed in one fragment. The remnants of the medial and lateral menisci were excised at the capsular junction with electrocautery. The tibia sized most appropriately at size 6. The trial femoral and tibial components were placed along with a 11 mm articular surface. I was able to obtain full flexion and extension with internal and external rotation. After several flexion and extension cycles, the tibial rotation was marked with electrocautery line with the medial one third of the tibial tubercle. Attention was then paid towards preparing the patella. A patella reamer was utilized taking stem to 14 mm of bone stock. A good flush cut was made. The patella sized most appropriately 35 mm. The peg holes were drilled. The trial components placed. I had good patellofemoral tracking with no hands technique. The trial components were then removed. The tibia was prepared in the appropriate rotation with appropriate drill and keel punch. The posterior osteophytes were removed with a curved osteotome. The flexion and extension gaps were checked and felt to be symmetric at 11 mm. A trial components were then removed. The bony surfaces were prepared with pulsatile lavage and dried. The tibial component was then cemented place was fully seated. Excess cement was removed. The femoral component cemented place and was fully seated. Excess cement was removed. The trial 11 mm articular surface was placed and the knee was put in full extension. The patella component was cemented place. After the cement had sufficiently hardened, the knee was again taken through a range of motion. Again I was able to obtain full flexion and extension with varus and valgus stress. The trial 11 mm articular surface was removed and the final one inserted. This was fully seated. Care was taken to avoid any soft tissue interposition. Pulsatile lavage was again utilized. The medial parapatellar arthrotomy was closed with #2 Ethibond suture. The tourniquet was deflated with approximately 60 minutes total tourniquet time. Final hemostasis was obtained with the cautery. There was minimal bleeding therefore a deep drain was not placed. The subcutaneous tissues were reapproximated with interrupted 2-0 Vicryl sutures. The skin was reapproximated with 3-0 subcuticular strata fix suture. Skin tape and adhesive was applied. A sterile dressing was applied. The patient was awoken from sedation and transferred to recovery room in good condition. Blood loss was estimated at 50 mL. No complications were incurred. Sponge and needle counts were correct at the end of the case. Rickey RUFFIN assisted during the major components of this case to include exposure, bone resection, implantation, and closure.
--- NOTE | 2023-04-22 14:53 | XR ---
EXAMINATION TYPE: XR knee limited RT DATE OF EXAM: 04/22/2023 CLINICAL HISTORY: Postoperative evaluation Two views of the right knee are submitted. Identified are changes of total knee arthroplasty with femoral and tibial components appearing well seated. Postsurgical soft tissue changes are noted. Alignment is anatomic.
[2023-04-22] MEDS ORDERED: ONDANSETRON 4 MG/2 ML VIAL IVP PRN (15:20)
[2023-04-22] MEDS ORDERED: SENNOSIDES-DOCUSATE SODIUM 1 EACH TAB PO SCH (21:00)
[2023-04-22] MEDS ORDERED: UBIDECARENONE 200 MG PO SCH (21:15)
[2023-04-22] MEDS ORDERED: MULTIVITAMINS, THERA 1 EACH TAB PO SCH (21:15)
[2023-04-22] MEDS ORDERED: CALCIUM CARBONATE 500 MG CHEWABLE PO SCH (21:15)
[2023-04-22] MEDS ORDERED: CHOLECALCIFEROL 25 MCG (1000 IU) TABLET PO SCH (21:15)
[2023-04-23] MEDS ORDERED: IBUPROFEN 400 MG TAB PO PRN (06:21)
--- NOTE | 2023-04-23 06:35 | P.CONS ---
History of Present Illness - Reason for Consult Consult date: 04/22/23 Medical management, postop right knee arthroplasty - History of Present Illness This is a 68-year-old female was admitted under orthopedic services underwent right total knee arthroplasty with cementing for severe osteoarthritis. Patient reports she follows with Dr. Andrews in the outpatient setting with a past medical history of atrial fibrillation, heart failure, GERD, hyperlipidemia, hypertension, osteoarthritis. Patient reports never smoker and denies illicit drug use. Patient did also go to her computer lab aide Dr. White for surgical clearance. Patient normally takes Xarelto and discussed with orthopedics and okay to resume in the a.m. All medications will be reviewed and resumed as appropriate. Recommend monitoring blood pressure and heart rate prior to resuming these medications as her rate was in the 50s and blood pressure slightly low postoperatively. Daughter at the bedside and this was discussed as well. Review Of Systems: Constitutional: No fever, no chills, no night sweats. No weight change. No weakness, fatigue or lethargy. No daytime sleepiness. EENT: No headache. No blurred vision or double vision, no loss of vision. No loss of Hearing, no ringing in the ears, no dizziness. No nasal drainage or congestion. No epistaxis. No sore throat. Lungs: No shortness of breath, cough, no sputum production. No wheezing. Cardiovascular: No chest pain, no lower extremity edema. No palpitations. No paroxysmal nocturnal dyspnea. No orthopnea. No lightheadedness or dizziness. No syncopal episodes. Abdominal: No abdominal pain. No nausea, vomiting. No diarrhea. No constipat ion. No bloody or tarry stools.. No loss of appetite. Genitourinary: No dysuria, increased frequency, urgency. No urinary retention. Musculoskeletal: No myalgias. No muscle weakness, no gait dysfunction, no frequent falls. No back pain. No neck pain. Reports right knee pain Integumentary: No wounds, no lesions. No rash or pruritus. No unusual bruising. No change in hair or nails. Neurologic: No aphasia. No facial droop. No change in mentation. No head injury. No headache. No paralysis. No paresthesia. Psychiatric: No depression. No anxiety. No mood swings. Endocrine: No abnormal blood sugars. No weight change. No excessive sweating or thirst. No cold intolerance. PHYSICAL EXAMINATION: GENERAL: The patient is asleep but arousable, alert and oriented , Well developed, well nourished. Morbidly obese HEENT: Pupils are round and equally reacting to light. EOMI. no scleral icterus. No conjunctival pallor. Normocephalic, atraumatic. No pharyngeal erythema. No thyromegaly. CARDIOVASCULAR: S1 and S2 muffled PULMONARY: diminished breath sounds bilaterally with no wheezing or rhonchi noted. ABDOMEN: soft. Nontender on exam. obese. non-distended, normoactive bowel sounds. No palpable organomegaly. MUSCULOSKELETAL: No joint swelling or deformity. EXTREMITIES: No cyanosis, clubbing, or pedal edema. Right knee surgical dressing is covered with no drainage noted through the bandage and Dhiraj wrapping is noted. NEUROLOGICAL: Gross neurological examination did not reveal any focal deficits. Diffuse weakness SKIN: No rashes. Assessment: Status post right total knee arthroplasty with cementing History of persistent atrial fibrillation, maintained on Xarelto History of chronic systolic Heart failure, not an exacerbation Hypertension Hyperlipidemia Osteoarthritis history Morbid obesity with a BMI of 43.0 GI prophylaxis DVT prophylaxis Full code Plan: Recommend to continue with current medications and management per orthopedic services. Patient is fresh postop from right knee arthroplasty with cementing for severe osteoarthritis Discussed with orthopedics and okay to resume anticoagulation in the a.m. as patient normally takes Xarelto for atrial fibrillation Home medications reviewed and resumed as appropriate Recommend physical therapy evaluation Encourage incentive spirometer and use at least 10 times every hour while awake We will continue to follow with orthopedics during hospitalization. Thank you kindly for this consultation. The impression and plan of care has been dictated by Melisa Short, nurse practitioner as directed. Dr. Hossein MD I have performed a history and examination and MDM of this patient, discussed the same with the dictator, and agree with the dictator's assessment and plan as written ,documented as a scribe. Based on total visit time, I have performed more than 50% of the visit. Any additional findings or plans will be noted. Past Medical History Past Medical History: Atrial Fibrillation, Heart Failure, GERD/Reflux, Hyperlipidemia, Hypertension, Osteoarthritis (OA) Additional Past Medical History / Comment(s): PALPITATIONS, HX OF BRAIN ANEURYSM IN [place] OF [place]., CURRENTLY HAS BLE EDEMA History of Any Multi-Drug Resistant Organisms: None Reported Past Surgical History: Appendectomy, Hysterectomy, Tonsillectomy Additional Past Surgical History / Comment(s): D & C'S, cardioversion x3, COLONOSCOPY, Past Anesthesia/Blood Transfusion Reactions: Motion Sickness, Postoperative Nausea & Vomiting (PONV) Additional Past Anesthesia/Blood Transfusion Reaction / Comm: SISTER =PONV Past Psychological History: No Psychological Hx Reported Smoking Status: Never smoker Past Alcohol Use History: None Reported Past Drug Use History: None Reported - Past Family History Father Family Medical History: AICD/Pacemaker Mother Family Medical History: Congestive Heart Failure (CHF) Medications and Allergies Home Medications Medication Instructions Recorded Confirmed Type lisinopriL [Zestril] 5 mg PO DAILY #30 tab 02/14/16 04/22/23 Rx Potassium Chloride [K-Tab ER] 10 meq PO DAILY 07/24/16 04/22/23 History Furosemide [Lasix] 20 mg PO DAILY 04/10/17 04/22/23 History Magnesium Chloride [Slow-Mag] 71.5 mg PO BID 04/10/17 04/22/23 History Metoprolol Tartrate [Lopressor] 12.5 mg PO DAILY 04/10/17 04/22/23 History Omeprazole [PriLOSEC] 20 mg PO DAILY 04/10/17 04/22/23 History Rivaroxaban [Xarelto] 20 mg PO 1700 04/10/17 04/22/23 History Spironolactone [Aldactone] 25 mg PO DAILY 08/01/20 04/22/23 History Flecainide [Tambocor] 150 mg PO Q12HR #60 tablet 08/02/20 04/22/23 Rx Atorvastatin [Lipitor] 20 mg PO HS 04/15/23 04/22/23 History Calcium Carbonate [Calcium] 600 mg PO HS 04/15/23 04/22/23 History Cholecalciferol [Vitamin D3 (25 50 mcg PO HS 04/15/23 04/22/23 History Mcg = 1000 Iu)] Multivit with Calcium,Iron,Min 1 each PO HS 04/15/23 04/22/23 History [Women's Multivitamin] Ubidecarenone [Coenzyme Q10] 200 mg PO HS 04/15/23 04/22/23 History Allergies Allergy/AdvReac Type Severity Reaction Status Date / Time CARDIOVERSION PAD AdvReac Unknown RED RASH, Uncoded 04/22/23 10:46 ITCHING FROM PAD USED ON CHEST FOR CARDIOVERSION. Physical Exam Vitals: Vital Signs Temp Pulse Pulse Resp BP BP Pulse Ox 04/22/23 19:15 97.4 F L 58 L 18 110/82 98 04/22/23 16:56 61 109/71 94 L 04/22/23 16:42 60 100/54 98 04/22/23 16:26 107/68 04/22/23 16:11 108/71 94 L 04/22/23 15:58 60 101/61 95 04/22/23 15:45 96 04/22/23 15:42 62 109/57 93 L 04/22/23 15:26 61 110/70 93 L 04/22/23 15:21 98.3 F 60 17 119/74 04/22/23 15:05 62 16 124/57 97 04/22/23 14:54 63 16 125/59 97 04/22/23 14:39 65 16 125/58 96 04/22/23 14:24 58 L 14 126/58 95 04/22/23 14:09 96.8 F L 62 16 124/58 96 04/22/23 10:52 97.7 F 48 L 16 139/62 97 Intake and Output 04/22/23 04/22/23 04/22/23 06:59 14:59 22:59 Intake Total 1301 Output Total 50 Balance 1251 Intake: IV 1301 Output: Estimated Blood Loss 50 Other: Weight 113.5 kg
[2023-04-23] MEDS ORDERED: ACETAMINOPHEN TAB 325 MG TAB PO PRN (06:43)
[2023-04-23] MEDS ORDERED: PANTOPRAZOLE 40 MG TABLET PO SCH (07:30)
[2023-04-23 07:41] VITALS: TEMP 98.7
[2023-04-23] MEDS: LACTATED RINGERS 1,000 ML IV SCH (07:47)
[2023-04-23] MEDS: HYDROcodone/APAP 7.5-325MG 1 EACH TAB PO PRN ×2 (08:23→15:27)
[2023-04-23] MEDS ORDERED: MAGNESIUM OXIDE 400 MG TAB PO SCH (09:00)
[2023-04-23] MEDS ORDERED: RIVAROXABAN 20 MG TAB PO SCH (09:00)
[2023-04-23] MEDS ORDERED: METOPROLOL TARTRATE 12.5 MG TAB PO SCH (09:00)
[2023-04-23] MEDS ORDERED: FLECAINIDE 50 MG TAB PO SCH (09:00)
[2023-04-23] MEDS ORDERED: NON FORMULARY DRUG (Omeprazole 20 MG Capsule.Dr) PO SCH (09:00)
[2023-04-23] MEDS ORDERED: traMADol 50 MG TAB PO PRN (10:22)
[2023-04-23] MEDS ORDERED: POTASSIUM CHLORIDE ER 10 MEQ TAB.ER.PRT PO SCH (10:30)
[2023-04-23 10:58] LABS: Basophils # (A) 0.06 X 10*3/uL (0.00-0.10); Basophils % (A) 0.4 %; Eosinophils # (A) 0.02 X 10*3/uL (0.04-0.35); Eosinophils % (A) 0.1 %; HCT 38.4 % (37.2-46.3); HGB 12.1 d/dL (12.0-15.0); Lymphocytes # (A) 1.18 X 10*3/uL (0.90-5.00); Lymphocytes % (A) 8.5 %; MCH 29.7 pg (27.0-32.0); MCHC 31.5 d/dL (32.0-37.0); MCV 94.3 FL (80.0-97.0); Monocytes # (A) 1.32 X 10*3/uL (0.20-1.00); Monocytes % (A) 9.5 %; NRBC Per 100 WBC 0 X 10*3/uL (0.00-0.01); Neutrophils # (A) 11.28 X 10*3/uL (1.80-7.70); Neutrophils % (A) 81.1 %; Platelet Count 260 X 10*3/uL (140-440); RBC 4.07 X 10*6/uL (4.10-5.20); RDW 14.5 % (11.5-14.5); WBC 13.92 X 10*3/uL (4.50-10.00)
--- NOTE | 2023-04-23 12:30 | P.PN ---
Subjective Progress Note Date: 04/23/23 Principal diagnosis: Status post right total knee arthroplasty Patient is examined today bedside, she is resting in her hospital chair. He was able to speak with physical therapy, she did ambulate very well. She does admit to some increasing pain in the knee since ambulating. She tried not to utilize the [place] due to making her sick, we discussed at bedside today the use of tramadol. Patient denies any headaches, lightheadedness, chest pain or shortness of breath. Objective - Vital Signs Vital signs: Vital Signs Temp 98.7 F 04/23/23 07:10 Pulse 67 04/23/23 07:10 Resp 16 04/23/23 07:10 BP 107/70 04/23/23 07:10 Pulse Ox 95 04/23/23 07:10 FiO2 Intake & Output 04/22/23 04/23/23 04/23/23 18:59 06:59 18:59 Intake Total 1301 Output Total 50 Balance 1251 Weight 113.5 kg Intake: IV 1301 Output: Estimated Blood Loss 50 Other: # Voids 2 - Exam Right lower extremity: Incision is clean, dry, and intact. The exofin fusion tape is in good condition. There is minimal soft tissue swelling and ecchymosis surrounding the medial and lateral aspects of the incision. Calf is soft, no tenderness with palpation. Plantar flexion, dorsiflexion, EHL, FHL are intact. Sensory exam to light touch throughout the extremity is intact, dorsal pedis pulses 2+. - Labs CBC & Chem 7: 04/23/23 06:49 Labs: Abnormal Lab Results - Last 24 Hours (Table) 04/23/23 Range/Units 06:49 WBC 13.92 H (4.50-10.00) X 10*3/uL RBC 4.07 L (4.10-5.20) X 10*6/uL MCHC 31.5 L (32.0-37.0) d/dL Neutrophils # 11.28 H (1.80-7.70) X 10*3/uL Monocytes # 1.32 H (0.20-1.00) X 10*3/uL Eosinophils # 0.02 L (0.04-0.35) X 10*3/uL Assessment and Plan Assessment: Postoperative day 1 status post right total knee arthroplasty Plan: Pain control, continue use of Tylenol. We'll try tramadol 50 mg every 6 hours DVT prophylaxis, patient's home Xarelto has been restarted Wound care instructions discussed, this including use of the On-Q pain catheter, showering instructions, icing and elevating Weight-bear as tolerated, recommend use of a walker at all times Encourage incentive spirometer Medical recommendations Discharge planning: Pending how patient does with tramadol, hopeful discharge home on 04/23/2023 versus 04/24/2023 Time with Patient: Less than 30
[2023-04-23 13:41] VITALS: BP 122/73; PULSE 87
[2023-04-23 13:46] VITALS: RESP 18
--- NOTE | 2023-04-23 14:40 | P.DS ---
Providers Date of admission: 04/22/2023 Expected date of discharge: 04/23/23 Attending physician: Antonino Barrera Consults: 04/22/23 13:37 Consult Physician Routine Consulting Provider: Rochelle Coppola Consult Reason/Comments: Medical Management s/p right total knee arthroplasty Do you want consulting provider notified?: Yes Primary care physician: Jordyn Andrews Hospital Course: Date of admission: 04/22/2023 Date of discharge: 04/23/2023 Admission diagnosis: Status post right total knee arthroplasty Discharge diagnosis: Same Attending physician: Dr. Barrera Surgical procedures: Right total knee arthroplasty Brief history: Patient is a 68-year-old female with a history of progressive primary right knee osteoarthritis. At this point patient has failed conservative treatment measures and has opted to proceed with a elective right total knee arthroplasty. Hospital course: Details of patient's surgery can be found in operative report. Patient tolerated the procedure well and was subsequently transported to orthopedic floor. Patient's orthopeidc and medical care was provided daily. Patient had daily laboratory tests performed for evaluation of overall blood counts. Patient had daily physical therapy to include strengthening range of motion as well as education with walker ambulation. Patient was treated with Xarelto for their postoperative DVT prophylaxis during their inpatient stay. Patient was noted to have a relatively uneventful postoperative course. Patient reported satisfactory pain control with oral pain medications by postoperative day 0. Patient showed satisfactory progress with physical therapy. Patient moved steadily through the program and had no difficulty meeting the goals by postoperative day 1. Given patient's otherwise satisfactory course and having met physical therapy goals, plan is to discharge patient home on postoperative day 1. Discharge condition/disposition: Patient will be discharged home in stable condition. Discharge medications: Instructions are given on resumption of patient's normal daily medications per primary care recommendation, in addition patient will be prescribed tramadol 50 mg, Senokot-S. Discharge instructions: 1. Wound care and infection precautions, keep incision dry and covered while showering, no lotions, creams, moisturizers. No soaking, tubs, pools, hottubs. Do not scrub over the incision. 2. Weight-bear as tolerated with walker / cane until follow-up. 3. Ice and elevate when necessary. Do not exceed 20 minutes per hour with ice pack. 4. Utilize compression sleeve until seen at first follow up appointment. 5. Visiting nursing care. 6. Home physical therapy including home CPM. 7. Pain meds and anticoagulants per prescription. 8. Pain medication has potential to cause constipation. Increase oral fluid and fiber intake. Contact primary care provider if you have not had a bowel movement within 48 hours after discharge 9. No anti-inflammatory medication until discussed at first post operative visit, this including Motrin, Aleve, Mobic, Diclofenac. 10. Follow up in office at 2 weeks postop with Kirk Fernandez PA-C/Rickey Desai 11. Follow up with your primary care doctor 7-10 days after discharge. 12. Contact [facility] with any questions, . Procedures: Right total knee arthroplasty Patient Condition at Discharge: Good Plan - Discharge Summary Discharge Rx Participant: Yes New Discharge Prescriptions: New Sennosides/Docusate Sodium [Senna-S 8.6-50 mg Tablet] 2 each PO DAILY PRN #30 tablet PRN Reason: Constipation traMADol HCl [Ultram] 50 mg PO Q6H PRN #28 tab PRN Reason: Pain No Action lisinopriL [Zestril] 5 mg PO DAILY #30 tab Potassium Chloride [K-Tab ER] 10 meq PO DAILY Omeprazole [PriLOSEC] 20 mg PO DAILY Furosemide [Lasix] 20 mg PO DAILY Rivaroxaban [Xarelto] 20 mg PO 1700 Metoprolol Tartrate [Lopressor] 12.5 mg PO DAILY Magnesium Chloride [Slow-Mag] 71.5 mg PO BID Spironolactone [Aldactone] 25 mg PO DAILY Flecainide [Tambocor] 150 mg PO Q12HR #60 tablet Atorvastatin [Lipitor] 20 mg PO HS Multivit with Calcium,Iron,Min [Women's Multivitamin] 1 each PO HS Cholecalciferol [Vitamin D3 (25 Mcg = 1000 Iu)] 50 mcg PO HS Ubidecarenone [Coenzyme Q10] 200 mg PO HS Calcium Carbonate [Calcium] 600 mg PO HS Discharge Medication List lisinopriL [Zestril] 5 mg PO DAILY #30 tab 02/14/16 [Rx] Potassium Chloride [K-Tab ER] 10 meq PO DAILY 07/24/16 [History] Furosemide [Lasix] 20 mg PO DAILY 04/10/17 [History] Magnesium Chloride [Slow-Mag] 71.5 mg PO BID 04/10/17 [History] Metoprolol Tartrate [Lopressor] 12.5 mg PO DAILY 04/10/17 [History] Omeprazole [PriLOSEC] 20 mg PO DAILY 04/10/17 [History] Rivaroxaban [Xarelto] 20 mg PO 1700 04/10/17 [History] Spironolactone [Aldactone] 25 mg PO DAILY 08/01/20 [History] Flecainide [Tambocor] 150 mg PO Q12HR #60 tablet 08/02/20 [Rx] Atorvastatin [Lipitor] 20 mg PO HS 04/15/23 [History] Calcium Carbonate [Calcium] 600 mg PO HS 04/15/23 [History] Cholecalciferol [Vitamin D3 (25 Mcg = 1000 Iu)] 50 mcg PO HS 04/15/23 [History] Multivit with Calcium,Iron,Min [Women's Multivitamin] 1 each PO HS 04/15/23 [History] Ubidecarenone [Coenzyme Q10] 200 mg PO HS 04/15/23 [History] Sennosides/Docusate Sodium [Senna-S 8.6-50 mg Tablet] 2 each PO DAILY PRN #30 tablet 04/23/23 [Rx] traMADol HCl [Ultram] 50 mg PO Q6H PRN #28 tab 04/23/23 [Rx] Follow up Appointment(s)/Referral(s): Rickey Son PAC [[facility]] - 05/08/23 11:00 am Patient Instructions/Handouts: Knee Replacement (DC) Activity/Diet/Wound Care/Special Instructions: Orthopedic Discharge Instructions: 1. Wound care and infection precautions, keep incision dry and covered while showering, no lotions, creams, moisturizers. No soaking, pools, hot tubs. Do not scrub over incision. 2. Weight-bear as tolerated with walker / cane until follow-up. 3. Ice and elevate when necessary. Do not exceed 20 minutes per hour with ice pack. 4. Utilize compression sleeve until seen at first follow up appointment. 5. Pain meds and anticoagulants per prescription. 6. Pain medication has potential to cause constipation. Increase oral fluid and fiber intake. Contact primary care provider if you have not had a bowel movement within 48 hours after discharge. 7. No anti-inflammatory medication until discussed at first post operative visit, this including Motrin, Aleve, Mobic, Diclofenac. 8. Follow up in office at 2 weeks postop with Kirk Fernandez PA-C / Rickey Son PA-C 9. Follow up with your primary care doctor 7-10 days after discharge. 10. Contact [facility] with any questions, . Keep incision clean, dry, intact. While showering, cover incision with Saran wrap. Keep fusion tape on until follow-up appointment in office in 2 weeks Discharge Disposition: HOME WITH HOME HEALTH SERVICES
[2023-04-23] MEDS ORDERED: ATORVASTATIN 20 MG TAB PO SCH (21:00)
--- NOTE | 2023-04-25 15:39 | P.PN ---
Subjective Progress Note Date: 04/23/23 - Reason for Consult Consult date: 04/22/23 Medical management, postop right knee arthroplasty - History of Present Illness This is a 68-year-old female was admitted under orthopedic services underwent right total knee arthroplasty with cementing for severe osteoarthritis. Patient reports she follows with Dr. Andrews in the outpatient setting with a past medical history of atrial fibrillation, heart failure, GERD, hyperlipidemia, hypertension, osteoarthritis. Patient reports never smoker and denies illicit drug use. 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 White for surgical clearance. Patient normally takes Xarelto and discussed with orthopedics and okay to resume in the a.m. All medications will be reviewed and resumed as appropriate. Recommend monitoring blood pressure and heart rate prior to resuming these medications as her rate was in the 50s and blood pressure slightly low postoperatively. Daughter at the bedside and this was discussed as well. 04/23/2023 Patient is seen and evaluated in follow-up today status post right total knee arthroplasty currently sitting up in the chair doing relatively well. Patient reports she worked with physical therapy and was able to tolerate the stairs and plans on going home. Patient has multiple family members for support and will be going home with home care. Patient does have a walker at the home. Patient with incentive spirometer encourage the patient at the common continue using at least 10 times every hour while awake. Patient did go to her doctor as well as cardiology for clearance and they are aware she has been hospitalized. Patient will follow-up in the outpatient setting in the next 2 weeks with cardiology. Patient's medications have been reviewed and resumed as appropriate. She is medically stable for discharge today and awaiting orthopedic evaluation. Review of systems: Constitutional: No reports of fatigue, fever, or chills Cardiovascular: No reports of chest pain or palpitations Respiratory: No reports of shortness of breath or cough GI: No reports of nausea, vomiting, or diarrhea : No reports of dysuria or retention Neurovascular: reports of generalized weakness All medications have been reviewed PHYSICAL EXAMINATION: GENERAL: The patient is awake, alert and oriented , currently sitting up in the chair Well developed, well nourished. Morbidly obese HEENT: Pupils are round and equally reacting to light. EOMI. no scleral icterus. No conjunctival pallor. Normocephalic, atraumatic. No pharyngeal erythema. No thyromegaly. CARDIOVASCULAR: S1 and S2 muffled PULMONARY: diminished breath sounds bilaterally with no wheezing or rhonchi noted. ABDOMEN: soft. Nontender on exam. obese. non-distended, normoactive bowel sounds. No palpable organomegaly. MUSCULOSKELETAL: No joint swelling or deformity. EXTREMITIES: No cyanosis, clubbing, or pedal edema. Right knee surgical dressing is covered with no drainage noted through the bandage and Dhiraj wrapping is noted. NEUROLOGICAL: Gross neurological examination did not reveal any focal deficits. Diffuse weakness SKIN: No rashes. Assessment: Status post right total knee arthroplasty with cementing History of persistent atrial fibrillation, maintained on Xarelto History of chronic systolic Heart failure, not an exacerbation Hypertension Hyperlipidemia Osteoarthritis history Morbid obesity with a BMI of 43.0 GI prophylaxis DVT prophylaxis Full code Plan: Patient to continue with current medications and management per orthopedic services. Patient has been seen and evaluated by physical therapy and will be going home with home care Discussed with orthopedics and okay to resume Xarelto today. Home medications reviewed and resumed as appropriate. Patient has been instructed to resume Lasix daily starting tomorrow once home. Encourage incentive spirometer and use at least 10 times every hour while awake and instructed the patient to take home and continue using We will continue to follow with orthopedics during hospitalization. Thank you kindly for this consultation. Patient is medically stable for discharge today. The impression and plan of care has been dictated by Melisa Short, nurse practitioner as directed. Dr. Hossein MD I have performed a history and examination and MDM of this patient, discussed the same with the dictator, and agree with the dictator's assessment and plan as written ,documented as a scribe. Based on total visit time, I have performed more than 50% of the visit. Any additional findings or plans will be noted. Objective - Vital Signs Vital signs: Vital Signs Temp 98.7 F 04/23/23 07:10 Pulse 67 04/23/23 07:10 Resp 16 04/23/23 07:10 BP 107/70 04/23/23 07:10 Pulse Ox 95 04/23/23 07:10 FiO2 Intake & Output 04/22/23 04/23/23 04/23/23 18:59 06:59 18:59 Intake Total 1301 Output Total 50 Balance 1251 Weight 113.5 kg Intake: IV 1301 Output: Estimated Blood Loss 50 Other: # Voids 2 - Labs CBC & Chem 7: 04/23/23 06:49
== END 2023-04-23 15:42 | disposition home health service (06) ==
LOC: OR 10:08 → 4SSUR 13:56 → OR 04-23 15:42
PROVIDERS: ATTEND Orthopaedic Surgery
DX: M17.11 Unilateral primary osteoarthritis, right knee (principal); I48.91 Unspecified atrial fibrillation; I10 Essential (primary) hypertension; E78.5 Hyperlipidemia, unspecified; K21.9 Gastro-esophageal reflux disease without esophagitis; Z90.89 Acquired absence of other organs; Z90.49 Acquired absence of other specified parts of digestive tract; Z90.710 Acquired absence of both cervix and uterus; Z82.49 Family history of ischemic heart disease and other diseases of the circulatory system; Z79.899 Other long term (current) drug therapy
CPT/HCPCS: 94760; 97161; 85025; 73560; 27447; C1713 ×2; C1776; J1100; J0690 ×3; J2405

== ENCOUNTER → 2024-08-17 | Day surgery (SDC) | payer MEDICARE, OTHER ==
[2024-08-13 10:02] VITALS: BMI 44.6
[~2024-08-17] MED LIST changes: -ACETAMINOPHEN TAB 500 MG TAB PO PRN; +ALPRAZolam 0.25 MG TAB PO PRN; +ALPRAZolam 0.5 MG TAB PO PRN; +ASPIRIN 325 MG TAB PO ONE; +ATORVASTATIN 20 MG TAB PO SCH; +ATORVASTATIN 80 MG TAB PO ONE; +FLECAINIDE 50 MG TAB PO SCH; +HEPARIN SODIUM,PORCINE (1 ML) 2,500 UNIT in SODIUM CHLORIDE 0.9% 250 ML IRRIGATION PRN; +HEPARIN SODIUM,PORCINE 10,000 UNIT in SODIUM CHLORIDE 0.9% 1,000 ML IRRIGATION PRN; +HYDROmorphone 0.5 MG/0.5 ML SYRINGE IVP PRN; +LACTATED RINGERS 1,000 ML IV SCH; -LIDOCAINE 1% (10MG/ML) FOR IV START INTRADERMA PRN; +LIDOCAINE 1% INJ 10MG/ML (20 ML MDV) ONE; -MELOXICAM 7.5 MG TAB PO PRN; +METOPROLOL TARTRATE 12.5 MG TAB PO SCH; -MIDAZOLAM 2 MG/2 ML VIAL IV PRN; -MORPHINE SULFATE 4 MG/ML SYRINGE IV PRN; +NITROGLYCERIN SL TABS 0.4 MG TAB SUBLINGUAL PRN; +PROPOFOL 10 MG/ML 20 ML VIAL IV ONE; +RIVAROXABAN 10 MG TAB PO SCH; +SODIUM CHLORIDE 0.9% 1,000 ML IV SCH; +SODIUM CHLORIDE 0.9% 1,000 ML in EMPTY BAG 1 BAG IV SCH; +SPIRONOLACTONE 25 MG TAB PO SCH; -TRANEXAMIC 1,000 MG/100ML-NACL 1,000 MG in SALINE 1 100ML.BAG IVPB PRN; -fentaNYL (PF) 50 MCG/ML 2 ML AMP IVP PRN; +lisinopriL 5 MG TAB PO SCH
[2024-08-17 06:40] VITALS: RESP 16; TEMP 97
[2024-08-17] MEDS: IV FLUID CONTINUATION 500 ML IV ONE (07:06)
[2024-08-17 07:17] LABS: African American GFR (CKD) 90 (>60 ml/min/1.73 sqM); Anion Gap 8 mmol/L; Blood Urea Nitrogen 21 mg/dL (7-17); Calcium 9.2 mg/dL (8.4-10.2); Carbon Dioxide 26 mmol/L (22-30); Chloride 104 mmol/L (98-107); Glucose 89 mg/dL (74-99); Non-African American GFR(CKD) 78 (>60 ml/min/1.73 sqM); Potassium 4.1 mmol/L (3.5-5.1); Sodium 138 mmol/L (137-145)
[2024-08-17] MEDS: BENZOCAINE SPRAY 1 EACH MM ONE (07:27)
--- NOTE | 2024-08-17 07:43 | P.PCN ---
Date of Procedure: 08/17/24 Description of Procedure: Indication: Atrial fibrillation Procedure Description: After explaining the procedure to the patient, it's risk and complications, blood pressure, heart rate and O2 saturation were monitored. The throat was sprayed with Cetacaine. Patient received sedation per anesthesia department. The probe was introduced into the esophagus without difficulty. Images were obtained. Following that, the probe was removed. There was no immediate complication. Findings: Left atrial size is dilated, left atrial appendage is normal. Left ventricular systolic function is mildly impaired with an ejection fraction estimated at 45 to 50%. The aortic valve and the mitral valve appears to be normal. Tricuspid valve is normal. Descending thoracic aorta revealed mild atherosclerotic changes. No pericardial effusion was noted. Contrast bubble study revealed no shunting across the interatrial septum. Doppler: Pulse wave and color Doppler were obtained, and revealed mild to moderate mitral and tricuspid regurgitation. There was no shunting by color Doppler study Conclusion: 1. Dilated left atrium with normal appearance of the left atrial appendage 2. Mild global hypokinesis of the left ventricle 3. Mild to moderate mitral and tricuspid regurgitation 4. No shunting across the interatrial septum 5. Mild atherosclerotic changes of the descending thoracic aorta Cardioversion: After obtaining ISSA and sedated state a synchronized biphasic cardioversion using 150 J was performed with rastafarian of sinus mechanism. There was no immediate complications.
[2024-08-17 08:46] VITALS: BP 106/64; PULSE 55
== END | disposition home or self-care (01) ==
LOC: CATHCVL 05:58
PROVIDERS: ATTEND Internal Medicine Interventional Cardiology
DX: I48.11 Longstanding persistent atrial fibrillation (principal); I70.0 Atherosclerosis of aorta; I42.8 Other cardiomyopathies; I08.1 Rheumatic disorders of both mitral and tricuspid valves; I10 Essential (primary) hypertension; E78.2 Mixed hyperlipidemia; K21.9 Gastro-esophageal reflux disease without esophagitis; M19.90 Unspecified osteoarthritis, unspecified site; Z79.899 Other long term (current) drug therapy; Z79.01 Long term (current) use of anticoagulants; Z90.89 Acquired absence of other organs; Z90.710 Acquired absence of both cervix and uterus; Z90.49 Acquired absence of other specified parts of digestive tract; Z91.09 Other allergy status, other than to drugs and biological substances
CPT/HCPCS: 93312; 93320; 93325; 92960; 80048; J2003; J2704

== ENCOUNTER 2024-10-19 09:33 | Day surgery (SDC) | payer MEDICARE, OTHER ==
[2024-10-19] MEDS: ONDANSETRON 4 MG/2 ML VIAL IVP ONE (05:52)
[~2024-10-19 09:33] MED LIST changes: -ALPRAZolam 0.25 MG TAB PO PRN; -ALPRAZolam 0.5 MG TAB PO PRN; -ASPIRIN 325 MG TAB PO ONE; -ATORVASTATIN 20 MG TAB PO SCH; -ATORVASTATIN 80 MG TAB PO ONE; -DEXAMETHASONE SOD PHOSPHATE 4 MG/ML 1 ML VIAL IV ONE; -FLECAINIDE 50 MG TAB PO SCH; -HEPARIN SODIUM,PORCINE (1 ML) 2,500 UNIT in SODIUM CHLORIDE 0.9% 250 ML IRRIGATION PRN; -HEPARIN SODIUM,PORCINE 10,000 UNIT in SODIUM CHLORIDE 0.9% 1,000 ML IRRIGATION PRN; -LACTATED RINGERS 1,000 ML IV SCH; +LIDOCAINE 1% (10MG/ML) FOR IV START INTRADERMA PRN; -LIDOCAINE 1% INJ 10MG/ML (20 ML MDV) ONE; -METOPROLOL TARTRATE 12.5 MG TAB PO SCH; -NITROGLYCERIN SL TABS 0.4 MG TAB SUBLINGUAL PRN; -ONDANSETRON 4 MG/2 ML VIAL IVP ONE; -PROPOFOL 10 MG/ML 20 ML VIAL IV ONE; -RIVAROXABAN 10 MG TAB PO SCH; -SODIUM CHLORIDE 0.9% 1,000 ML IV SCH; -SODIUM CHLORIDE 0.9% 1,000 ML in EMPTY BAG 1 BAG IV SCH; -SPIRONOLACTONE 25 MG TAB PO SCH; -lisinopriL 5 MG TAB PO SCH
[2024-10-19] MEDS: SODIUM CHLORIDE 0.9% 1,000 ML IV SCH (09:46)
[2024-10-19] MEDS: IV FLUID CONTINUATION 1,000 ML IV ONE (09:49)
[2024-10-19 10:59] LABS: Basophils # (A) 0.1 k/uL (0-0.2); Basophils % (A) 1 %; Eosinophils # (A) 0.3 k/uL (0-0.7); Eosinophils % (A) 4 %; HCT 43.5 % (34.0-46.0); HGB 13.9 gm/dL (11.4-16.0); Lymphocytes # (A) 1.8 k/uL (1.0-4.8); Lymphocytes % (A) 20 %; MCH 28.9 pg (25.0-35.0); MCHC 31.9 g/dL (31.0-37.0); MCV 90.7 fL (80.0-100.0); Mean Platelet Volume 7.4; Monocytes # (A) 0.5 k/uL (0-1.0); Monocytes % (A) 6 %; Neutrophils % (A) 68 %; Platelet Count 327 k/uL (150-450); RBC 4.79 m/uL (3.80-5.40); RDW 14.3 % (11.5-15.5); WBC 8.8 k/uL (3.8-10.6)
[2024-10-19] MEDS ORDERED: SUCCINYLCHOLINE CHLORIDE 200 MG/10 ML VIAL IV ONE (11:12)
[2024-10-19] MEDS ORDERED: PHENYLEPHRINE 10 MG/ML VIAL ONE (11:12)
[2024-10-19] MEDS ORDERED: HEPARIN SODIUM,PORCINE 10,000 UNIT/ML 1 ML VIAL ONE (11:12)
[2024-10-19] MEDS ORDERED: ROCURONIUM 10 MG/ML (5 ML VIAL) IV ONE (11:12)
[2024-10-19] MEDS ORDERED: LIDOCAINE 1% INJ 10MG/ML (20 ML MDV) ONE (11:12)
[2024-10-19] MEDS ORDERED: PROPOFOL 10 MG/ML 20 ML VIAL IV ONE (11:12)
[2024-10-19] MEDS ORDERED: MIDAZOLAM 2 MG/2 ML VIAL ONE (11:12)
[2024-10-19 11:13] LABS: ALT 19 U/L (4-34); AST 21 U/L (14-36); African American GFR (CKD) >90 (>60 ml/min/1.73 sqM); Albumin 4.3 g/dL (3.5-5.0); Alkaline Phosphatase 74 U/L (38-126); Anion Gap 7 mmol/L; Blood Urea Nitrogen 17 mg/dL (7-17); Calcium 9.4 mg/dL (8.4-10.2); Carbon Dioxide 28 mmol/L (22-30); Chloride 104 mmol/L (98-107); Glucose 91 mg/dL (74-99); Non-African American GFR(CKD) 81 (>60 ml/min/1.73 sqM); Potassium 4.1 mmol/L (3.5-5.1); Sodium 139 mmol/L (137-145); Total Bilirubin 0.9 mg/dL (0.2-1.3); Total Protein 6.9 g/dL (6.3-8.2)
[2024-10-19] MEDS: HEPARIN SODIUM (1,000 UNIT/ML) 1,000 UNIT in SODIUM CHLORIDE 0.9% 1,000 ML IRRIGATION ONE (11:54)
[2024-10-19] MEDS: HEPARIN SOD,PORK IN 0.45% NACL 25,000 UNIT in 0.45% NACL 1 250ML.BAG IV ONE (11:54)
[2024-10-19] MEDS: IOPAMIDOL-370 100ML BTL INJ ONE (12:05)
[2024-10-19] MEDS: LIDOCAINE 1% INJ 10MG/ML (20 ML MDV) SQ ONE (12:05)
[2024-10-19] MEDS: HEPARIN SODIUM,PORCINE (1 ML) 2,500 UNIT in SODIUM CHLORIDE 0.9% 250 ML IRRIGATION ONE (12:28)
[2024-10-19] MEDS: HEPARIN SODIUM,PORCINE 10,000 UNIT in SODIUM CHLORIDE 0.9% 1,000 ML IRRIGATION ONE (12:28)
[2024-10-19] MEDS ORDERED: ACETAMINOPHEN TAB 325 MG TAB PO PRN (16:05)
--- NOTE | 2024-10-19 16:11 | P.EPPROC ---
- EP Procedure Note Electrophysiology Procedure Note: PROCEDURE A. fib ablation with antral level pulmonary vein isolation, left atrial septal ablation and left atrial roof ablation DIAGNOSIS Persistent atrial fibrillation, symptomatic, refractory to therapy associated RVR RESULT No left atrial appendage mass seen on intracardiac echo, dilated left atrium Successful A. fib ablation/pulmonary vein isolation of all veins using cryo- ablation Complete entrance block in all 4 veins confirmed No evidence for phrenic nerve injury Left atrial roof ablation Left atrial septal ablation Esophageal deflection NO Electrical cardioversion with a synchronized shock across the chest YES PROCEDURE DETAILS Written informed consent prior to procedure. Patient brought to the EP lab. General anesthesia given. Heparin administered. A city maintained above 300 seconds Both groins prepped and draped per protocol and venous sheaths placed. Esophagus intubated, circa catheter for temperature monitoring an endoscope for possible esophageal deflection. Phrenic nerve monitoring performed. Esophageal temperature monitoring performed. Esophageal deflection performed if circa catheter overlapping with the balloon or circa temperature less than 27.5C Intracardiac echocardiography performed. Pericardium evaluated. Left atrial appendage evaluated. Left atrium evaluated along with pulmonary veins Transseptal catheterization performed under fluoroscopic guidance and intracardiac echo guidance Cryoablation sheath exchanged, balloon catheter along with achieve catheter placed in the left atrium. Pulmonary veins isolated in the following sequence: Left superior pulmonary vein followed by left inferior pulmonary vein, followed by right inferior pulmonary vein and lastly right superior pulmonary vein. Phrenic nerve stimulation along with capture thresholds within the SVC and right superior pulmonary vein to identify the phrenic nerve proximity to the cryo- balloon. Pulmonary veins isolated and confirmed with entrance and exit block. Phrenic nerve integrity confirmed at the end of the procedure Ablation of the left atrial roof performed with sequential lesions from the left superior to the right superior pulmonary veins. Additional RF lesions applied in the mid roof. Ablation of the electrograms confirmed Ablation of the left atrial septum performed with cannulation of the superior branch of the right inferior or the inferior branch of the right superior vein to achieve ablation of the posterior septum of the left atrium. Additional RF lesions applied Ablation of electrograms confirmed Electrical cardioversion performed for persistence of atrial fibrillation despite successful ablation. Diagnostic catheters for the high right atrium, His bundle, coronary sinus placed. LA and RA pressures recorded LA pressure: 34/11/22 Diagnostic EP study with coronary sinus pacing and recording post cardioversion Baseline measurements: AH 127 ms, HV interval 37 ms Sinus node recovery times were 1395, 742 and 607 ms. AV node Wenckebach block 440 ms On wide open Isopril and straight pacing, no A-fib induced post cardioversion Venous sheaths were removed and hemostasis assured with a closure device. Patient extubated and transferred to recovery Increase procedural time Very enlarged left atrium with large right-sided pulmonary veins as well as left inferior pulmonary vein. Mapping of this left atrium today took an extended period of time. Left atrial roofline was very long and required multiple sequential ablations and later additional RF ablations PROCEDURES PERFORMED Diagnostic EP study CS pacing and recording Left and right transseptal catheterization Catheter the mapping of the tachycardia Intracardiac echocardiography Pulmonary vein isolation with transseptal and comprehensive EPS, [id number] Extended procedure duration Drug infusion, +[id number] Left atrial roof line, +[id number] Linear ablation, left atrium, +[id number] Electrical cardioversion with a synchronized shock across the chest [id number]
--- NOTE | 2024-10-19 16:14 | P.HPCAR ---
History of Present Illness This is Dr. Penny dictating an H/P on this patient The patient was interviewed and examined IMPRESSION / ASSESSMENT: Persistent symptomatic atrial fibrillation with RVR, failed medical treatment Symptoms of tiredness fatigue and shortness of breath Mildly reduced LV systolic function of 47 with moderate MR Severe left atrial enlargement Morbid obesity BMI almost 45 PLAN: IV heparin dose calculated. Continue Xarelto A-fib ablation with PVI and lesion ablation of the left atrium HPI . Patient remains in atrial fibrillation. She has failed medical treatment on multiple occasions. She is on anticoagulation Her main symptoms of tiredness fatigue lack of energy. She also has mild cardiomyopathy as result of A-fib with RVR Left atrium is significantly enlarged. ROS: No fever chills or rigors, no cough, phlegm or expectoration, no nausea, vomiting or diarrhea, no hematuria, dysuria, no musculoskeletal complaints, no strokes or seizures, no skin lesions. EXAMINATION: Afebrile pulse rate 80s to 100 beats minute irregular Breath sounds are reduced bilaterally Heart sounds are irregular no murmurs Abdomen is soft Increased BMI with central obesity No lower extremity edema No JVD REVIEW OF LABS, ECG & MEDICAL DATA White count 8.8 thousand, hematocrit 43.5, platelet count 327,000 Normal electrolytes normal renal function normal liver function TSH 1.2 Physical Exam Vitals: Vital Signs Temp Pulse 10/19/24 09:52 97.4 F L 89 Intake and Output 10/19/24 10/19/24 10/19/24 06:59 14:59 22:59 Intake Total 1167 0 Balance 1167 0 Intake: IV 1167 0 Other: Weight 118.1 kg Past Medical History Past Medical History: Atrial Fibrillation, Heart Failure, GERD/Reflux, Hyperlipidemia, Hypertension, Osteoarthritis (OA) Additional Past Medical History / Comment(s): PALPITATIONS, HX OF 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 Penny H & P History of Any Multi-Drug Resistant Organisms: None Reported Past Surgical History: Appendectomy, Hysterectomy, Joint Replacement, Tonsillectomy Additional Past Surgical History / Comment(s): D & C'S, cardioversion x2, RT TKA Past Anesthesia/Blood Transfusion Reactions: Motion Sickness, Postoperative Nausea & Vomiting (PONV) Additional Past Anesthesia/Blood Transfusion Reaction / Comment(s): SISTER =PONV, no hx. of transfusion problems Smoking Status: Never smoker - Past Family History Father Family Medical History: AICD/Pacemaker Mother Family Medical History: Congestive Heart Failure (CHF) Physical Examination Vital Signs Temp Pulse 10/19/24 09:52 97.4 F L 89 Intake and Output 10/19/24 10/19/24 10/19/24 06:59 14:59 22:59 Intake Total 1167 0 Balance 1167 0 Intake: IV 1167 0 Other: Weight 118.1 kg Results 10/19/24 10:42 10/19/24 10:42 Cardiac Enzymes 10/19/24 Range/Units 10:42 AST 21 (14-36) U/L CBC 10/19/24 Range/Units 10:42 WBC 8.8 (3.8-10.6) k/uL RBC 4.79 (3.80-5.40) m/uL Hgb 13.9 (11.4-16.0) gm/dL Hct 43.5 (34.0-46.0) % Plt Count 327 (150-450) k/uL Comprehensive Metabolic Panel 10/19/24 Range/Units 10:42 Sodium 139 (137-145) mmol/L Potassium 4.1 (3.5-5.1) mmol/L Chloride 104 (98-107) mmol/L Carbon Dioxide 28 (22-30) mmol/L BUN 17 (7-17) mg/dL Creatinine 0.76 (0.52-1.04) mg/dL Glucose 91 (74-99) mg/dL Calcium 9.4 (8.4-10.2) mg/dL AST 21 (14-36) U/L ALT 19 (4-34) U/L Alkaline Phosphatase 74 (38-126) U/L Total Protein 6.9 (6.3-8.2) g/dL Albumin 4.3 (3.5-5.0) g/dL Current Medications Generic Name Dose Route Start Last Admin Trade Name Freq PRN Reason Stop Dose Admin Acetaminophen 650 mg 10/19/24 16:05 Acetaminophen Tab 325 Mg Tab PO 11/18/24 16:04 Q6HR PRN Mild Pain (Scale 1 to 3) Atorvastatin Calcium 20 mg 10/19/24 21:00 Atorvastatin 20 Mg Tab PO 11/18/24 20:59 HS SATISH Furosemide 20 mg 10/20/24 09:00 Furosemide 20 Mg Tab PO 11/19/24 08:59 DAILY SATISH Hydromorphone HCl 0.5 mg 10/19/24 07:00 Hydromorphone 0.5 Mg/0.5 Ml Syringe IVP 10/19/24 23:00 Q5M PRN Phase 1 or 2 - Pain Control Sodium Chloride 1,000 mls @ 20 mls/hr 10/19/24 05:56 10/19/24 09:46 Saline 0.9% IV 11/18/24 05:55 20 mls/hr .Q24H SATISH Administration Lactated Ringer's 1,000 mls @ 20 mls/hr 10/19/24 05:56 Lactated Ringers IV 11/18/24 05:55 .Q24H SATISH Acetaminophen 1,000 mg/ IV 100 mls @ 400 mls/hr 10/19/24 16:05 Solution IVPB 10/19/24 16:19 ONCE ONE Lidocaine HCl 0.1 ml 10/19/24 05:56 Lidocaine 1% (10mg/Ml) For Iv Start INTRADERMA 11/18/24 05:55 PER PROTOCOL PRN IV Start Lisinopril 5 mg 10/20/24 09:00 Lisinopril 5 Mg Tab PO 11/19/24 08:59 DAILY SATISH Magnesium Oxide 400 mg 10/19/24 21:00 Magnesium Oxide 400 Mg Tab PO 11/18/24 20:59 BID SATISH Pantoprazole Sodium 40 mg 10/20/24 07:30 Pantoprazole 40 Mg Tablet PO AC-BRKFST SATISH Potassium Chloride 10 meq 10/20/24 09:00 Potassium Chloride Er 10 Meq Tab.Er.Prt PO 11/19/24 08:59 DAILY SATISH Rivaroxaban 20 mg 10/19/24 17:00 Rivaroxaban 20 Mg Tab PO 11/18/24 16:59 1700 SATISH Protocol Sodium Chloride 12 ml 10/19/24 16:05 Sodium Chloride 0.9% Flush 10 Ml Syringe IV 11/18/24 16:04 Q12HR PRN Line Flush Spironolactone 25 mg 10/20/24 09:00 Spironolactone 25 Mg Tab PO 11/19/24 08:59 DAILY SATISH Intake and Output 10/19/24 10/19/24 10/19/24 06:59 14:59 22:59 Intake Total 1167 0 Balance 1167 0 Intake: IV 1167 0 Other: Weight 118.1 kg Patient Weight 10/20/24 06:59 Weight 118.1 kg 10/19/24 10:42 10/19/24 10:42
[2024-10-19] MEDS: ACETAMINOPHEN IV (For NPO) 1,000 MG in EMPTY BAG 1 BAG IVPB ONE (16:44)
[2024-10-19] MEDS: LACTATED RINGERS 1,000 ML IV SCH (17:09)
[2024-10-19] MEDS: DEXAMETHASONE SOD PHOSPHATE 4 MG/ML 1 ML VIAL IV ONE (17:09)
[2024-10-19] MEDS: ONDANSETRON 4 MG/2 ML VIAL IVP STA (17:09)
[2024-10-19] MEDS: RIVAROXABAN 20 MG TAB PO SCH (18:01)
[2024-10-19] MEDS: MAGNESIUM OXIDE 400 MG TAB PO SCH (20:08)
[2024-10-19] MEDS: ATORVASTATIN 20 MG TAB PO SCH (20:08)
[2024-10-20 02:40] VITALS: RESP 16
[2024-10-20] MEDS: FUROSEMIDE 20 MG TAB PO SCH (08:12)
[2024-10-20] MEDS: PANTOPRAZOLE 40 MG TABLET PO SCH (08:12)
[2024-10-20] MEDS: lisinopriL 5 MG TAB PO SCH (08:12)
[2024-10-20] MEDS: SPIRONOLACTONE 25 MG TAB PO SCH (08:13)
[2024-10-20] MEDS: POTASSIUM CHLORIDE ER 10 MEQ TAB.ER.PRT PO SCH (08:13)
[2024-10-20 08:22] VITALS: BP 126/65; PULSE 77; TEMP 98.2
--- NOTE | 2024-10-21 16:43 | P.DS ---
Providers Attending physician: Yonatan Penny Primary care physician: Zuleika Suero MD Hospital Course: Patient is doing well. She remains in normal rhythm. Mildly prolonged ID interval She underwent an A-fib ablation yesterday Denies any chest discomfort dizziness lightheadedness or palpitations Pulse rate in the 70s blood pressure 126/65 mmHg Heart sounds S1-S2 normal no murmurs no gallop no rub Breath sounds are clear Groins of healed well no hematoma no swelling Impression Persistent atrial fibrillation symptomatic Status post A-fib ablation Plan discharge home Continue anticoagulation uninterrupted Continue other medications and follow-up with Dr. Bennett in 1 week Plan - Discharge Summary Discharge Rx Participant: Yes New Discharge Prescriptions: No Action RX: lisinopriL [Zestril] 5 mg PO DAILY #30 tab RX: Potassium Chloride [K-Tab ER] 10 meq PO DAILY RX: Omeprazole [PriLOSEC] 20 mg PO DAILY RX: Furosemide [Lasix] 20 mg PO DAILY RX: Rivaroxaban [Xarelto] 20 mg PO 1700 RX: Metoprolol Tartrate [Lopressor] 12.5 mg PO DAILY RX: Magnesium Chloride [Slow-Mag] 71.5 mg PO BID RX: Spironolactone [Aldactone] 25 mg PO DAILY Atorvastatin [Lipitor] 20 mg PO HS RX: Alendronate Sodium 70 mg PO SA Cholecalciferol [Vitamin D3 (25 Mcg = 1000 Iu)] 25 mcg PO HS Ubidecarenone [Coenzyme Q10] 200 mg PO HS Calcium Carbonate [Calcium] 600 mg PO HS Discharge Medication List RX: lisinopriL [Zestril] 5 mg PO DAILY #30 tab 02/14/16 [Rx] RX: Potassium Chloride [K-Tab ER] 10 meq PO DAILY 07/24/16 [History] RX: Furosemide [Lasix] 20 mg PO DAILY 04/10/17 [History] RX: Magnesium Chloride [Slow-Mag] 71.5 mg PO BID 04/10/17 [History] RX: Metoprolol Tartrate [Lopressor] 12.5 mg PO DAILY 04/10/17 [History] RX: Omeprazole [PriLOSEC] 20 mg PO DAILY 04/10/17 [History] RX: Rivaroxaban [Xarelto] 20 mg PO 1700 04/10/17 [History] RX: Spironolactone [Aldactone] 25 mg PO DAILY 08/01/20 [History] Atorvastatin [Lipitor] 20 mg PO HS 04/15/23 [History] Calcium Carbonate [Calcium] 600 mg PO HS 04/15/23 [History] Cholecalciferol [Vitamin D3 (25 Mcg = 1000 Iu)] 25 mcg PO HS 04/15/23 [History] Ubidecarenone [Coenzyme Q10] 200 mg PO HS 04/15/23 [History] RX: Alendronate Sodium 70 mg PO SA 08/13/24 [History] Follow up Appointment(s)/Referral(s): Shawna White MD [STAFF PHYSICIAN] - 1 Week Patient Instructions/Handouts: Cardiac Ablation (DC) Discharge Disposition: HOME SELF-CARE
== END 2024-10-20 11:05 | disposition home or self-care (01) ==
LOC: CATHEP 09:33 → 6NMEDSUR 15:37 → CATHEP 10-20 11:05
PROVIDERS: ATTEND Internal Medicine Clinical Cardiac Electrophysiology
DX: I48.19 Other persistent atrial fibrillation (principal); Z79.01 Long term (current) use of anticoagulants; I50.9 Heart failure, unspecified; E66.01 Morbid (severe) obesity due to excess calories; Z68.42 Body mass index [BMI] 45.0-49.9, adult
CPT/HCPCS: 92960; 93623; 93656; 93657; 86900; 86901; 80053; 84443; 85025; 86850; C1894; C1769; C1760 ×3; C1730 ×2; C1731; C1759; C1733; C1732; J2250; J0330; J1644 ×4; J2405; J2003; J0131; J2704; Q9967; J2371

== ENCOUNTER 2024-12-28 06:10 | Day surgery (SDC) | payer MEDICARE, OTHER ==
[2024-12-28] MEDS ORDERED: SODIUM CHLORIDE 0.9% 500 ML IV SCH (06:15)
[2024-12-28] MEDS: SODIUM CHLORIDE 0.9% 500 ML 500 ML IV ONE (06:41)
[2024-12-28 06:56] VITALS: TEMP 97.7
[2024-12-28] MEDS ORDERED: PROPOFOL 10 MG/ML 20 ML VIAL IV ONE (07:08)
[2024-12-28] MEDS ORDERED: LIDOCAINE 1% INJ 10MG/ML (20 ML MDV) ONE (07:08)
[2024-12-28] MEDS: BENZOCAINE SPRAY 1 EACH MUCOUS MEM PRN (07:16)
--- NOTE | 2024-12-28 07:30 | P.PCN ---
Date of Procedure: 12/28/24 Description of Procedure: Indication: Atrial fibrillation Procedure Description: After explaining the procedure to the patient, it's risk and complications, blood pressure, heart rate and O2 saturation were monitored. The throat was sprayed with Cetacaine. Patient received sedation per anesthesia department. The probe was introduced into the esophagus without difficulty. Images were obtained. Following that, the probe was removed. There was no immediate complication. Findings: Left atrial size is dilated, left atrial appendage is normal. Left ventricular size and systolic function are normal. The aortic valve, mitral valve and tricuspid valve appears to be normal. Descending thoracic aorta appears to be normal. No pericardial effusion was noted. Contrast bubble study revealed no shunting across the interatrial septum. Doppler: Pulse wave and color Doppler were obtained, and revealed moderate mitral and tricuspid regurgitation. There was no shunting across the interatrial septum with color Doppler study. Conclusion: 1. Dilated left atrium with normal appearance of the left atrial appendage 2. Normal ventricle size and systolic function 3. Moderate mitral and tricuspid regurgitation 4. Normal appearance of the descending thoracic aorta 5. No shunting across the interatrial septum Cardioversion: After obtaining ISSA and sedated state per anesthesia department a synchronized biphasic cardioversion using 200 J was performed with sikhism of sinus mechanism, there was no immediate complications.
[2024-12-28 07:39] LABS: African American GFR (CKD) >90 (>60 ml/min/1.73 sqM); Anion Gap 10 mmol/L; Blood Urea Nitrogen 22 mg/dL (7-17); Calcium 9.3 mg/dL (8.4-10.2); Carbon Dioxide 24 mmol/L (22-30); Chloride 103 mmol/L (98-107); Glucose 91 mg/dL (74-99); Magnesium 1.9 mg/dL (1.6-2.3); Non-African American GFR(CKD) 87 (>60 ml/min/1.73 sqM); Potassium 4.3 mmol/L (3.5-5.1); Sodium 137 mmol/L (137-145)
[2024-12-28 09:00] VITALS: RESP 18
[2024-12-28] MEDS ORDERED: lisinopriL 5 MG TAB PO SCH (09:00)
[2024-12-28] MEDS ORDERED: FUROSEMIDE 20 MG TAB PO SCH (09:00)
[2024-12-28] MEDS ORDERED: METOPROLOL TARTRATE 25 MG TAB PO SCH (09:00)
[2024-12-28] MEDS ORDERED: NON FORMULARY DRUG (Magnesium Chloride 64 MG Tablet.Er) PO SCH (09:00)
[2024-12-28] MEDS ORDERED: NON FORMULARY DRUG (Omeprazole 20 MG Capsule.Dr) PO SCH (09:00)
[2024-12-28] MEDS ORDERED: POTASSIUM CHLORIDE 10 MEQ PO SCH (09:00)
[2024-12-28 09:01] VITALS: BP 110/72; PULSE 65
[2024-12-28] MEDS ORDERED: SPIRONOLACTONE 25 MG TAB PO SCH (17:00)
[2024-12-28] MEDS ORDERED: RIVAROXABAN 10 MG TAB PO SCH (17:00)
[2024-12-28] MEDS ORDERED: ATORVASTATIN 20 MG TAB PO SCH (21:00)
[2025-01-01] MEDS ORDERED: NON FORMULARY DRUG (Alendronate Sodium [Alendronate Sodium] 70 MG Tablet) PO SCH (09:00)
== END 2024-12-28 09:13 | disposition home or self-care (01) ==
LOC: OR 06:10 → EDSTATUS 07:15 → OR 09:13
PROVIDERS: ATTEND Internal Medicine Interventional Cardiology
DX: I08.1 Rheumatic disorders of both mitral and tricuspid valves (principal); I48.11 Longstanding persistent atrial fibrillation; I42.8 Other cardiomyopathies; I10 Essential (primary) hypertension; E78.2 Mixed hyperlipidemia; Z79.01 Long term (current) use of anticoagulants; Z79.899 Other long term (current) drug therapy
CPT/HCPCS: 93312; 93320; 93325; 92960; 80048; 83735; J2003; J2704

== ENCOUNTER → 2025-01-06 | Outpatient (CLI) | payer MEDICARE, OTHER ==
--- NOTE | 2025-01-06 17:39 | MM ---
Reason for Exam: Screening (asymptomatic). Last mammogram was performed 2 year(s) and 5 month(s) ago. Patient History: Menarche at age 13. First Full-Term at age 22. Hysterectomy at age 41. Postmenopausal. Patient has history of breast feeding. Risk Values: Nicole 5 year model risk: 1.5%. NCI Lifetime model risk: 5.0%. Prior Study Comparison: 05/10/2019 Bilateral MG screening mammo w CAD - 2, [facility]. 08/16/2022 Bilateral MG 3D screening mammo w/cad, [facility]. Tissue Density: There are scattered areas of fibroglandular density. Findings: Analyzed By CAD. Unchanged global asymmetry lower inner quadrant right breast. Other areas of asymmetric density remain unchanged as well. Benign bilateral secretory calcifications redemonstrated. There is no suspicious group of microcalcifications or new suspicious mass in either breast. Overall Assessment: Benign, BI-RAD 2 Management: Screening Mammogram of both breasts in 1 year. Patient should continue monthly self-breast exams. A clinical breast exam by your physician is recommended on an annual basis. This exam should not preclude additional follow-up of suspicious palpable abnormalities. Note on Nicole scores and lifetime risk: 1. A Nicole score greater than 3% is considered moderate risk. If this is the case, consider specialist referral to assess eligibility for a risk reducing agent. 2. If overall lifetime risk for the development of breast cancer is 20% or higher, the patient may qualify for future screening with alternating mammogram and breast MRI. [facility], , 01/06/2025 5:37 PM. Electronically signed and approved by: Alireza Espinoza M.D. Radiologist
== END | disposition home or self-care (01) ==
LOC: RADMAMWWP 14:19
PROVIDERS: ATTEND Pediatrics
DX: Z12.31 Encounter for screening mammogram for malignant neoplasm of breast (principal); R92.323 Mammographic fibroglandular density, bilateral breasts; R92.1 Mammographic calcification found on diagnostic imaging of breast; Z78.0 Asymptomatic menopausal state
CPT/HCPCS: 77063; 77067

== ENCOUNTER → 2025-03-08 | Outpatient (CLI) | payer MEDICARE, OTHER ==
[2025-03-08 14:39] VITALS: BP 129/95; PULSE 86; RESP 16; TEMP 97.7
--- NOTE | 2025-03-08 17:16 | P.SLEEP ---
History of Present Illness H&P Date: 03/08/25 This is a 69-year-old female patient with history of chronic atrial fibrillation, referred to me for sleep apnea evaluation. The patient is morbidly obese and she carries a body mass index of 49.3. She has history of snoring. Denies waking up choking or gasping for air. She goes to bed around 11 PM and gets out of bed 7 AM in the morning patient is averaging around 8 hours of sleep. She sleeps on her back and currently she is sleeping in a recliner where she feels more comfortable. Her weight is up by around 20 pounds over the past 5 years. In terms of her chronic A-fib, the patient has undergone previous cardiac ablation that was successful in following several weeks of successful normal sinus rhythm, the patient bounced back into atrial fibrillation. She is currently on metoprolol for rate control and she is also taking anticoagulation with Xarelto. The patient has no symptoms of nocturia. Denies nocturnal grinding. No sleepwalking. No sleep talking. No nocturnal anxiety or panic attack or chest pain or heartburn. She feels a bit fatigued during the day. Nevertheless, this has not affected her memory with concentration. Her comorbid conditions include congestion heart failure with an ejection fraction of 35%, hypertension, hyperlipidemia, osteoporosis and she has chronic lower extremity edema. Patient drinks coffee around 3 to 4 cups during the day. No history of smoking. No alcoholism. No substance abuse. Review of Systems Constitutional: Reports fatigue, Reports weight gain Eyes: denies as per HPI, denies blurred vision, denies bulging eye, denies decreased vision, denies diplopia, denies discharge, denies dry eye, denies irritation, denies itching, denies pain, denies photophobia, denies loss of peripheral vision, denies loss of vision, denies tunnel vision/blind spots Ears: deny: decreased hearing, ear discharge, earache, tinnitus Ears, nose, mouth and throat: Reports as per HPI Breasts: absent: as per HPI, change in shape, gynecomastia, masses, nipple discharge, pain, skin changes, swelling Cardiovascular: Reports decreased exercise tolerance, Reports dyspnea on exertion, Reports irregular heart beat, Reports leg edema, Reports shortness of breath Respiratory: Reports snoring Gastrointestinal: Reports as per HPI Genitourinary: Reports as per HPI Menstruation: Reports as per HPI Musculoskeletal: Reports as per HPI Musculoskeletal: absent: ankle pain, ankle stiffness, ankle swelling, as per HPI, elbow pain, elbow stiffness, elbow swelling, foot pain, foot stiffness, foot swelling, hand pain, hand stiffness, hand swelling, hip pain, hip stiffness, hip swelling, knee pain, knee stiffness, knee swelling, shoulder pain, shoulder stiffness, shoulder swelling, wrist pain, wrist stiffness, wrist swelling Integumentary: Reports as per HPI Neurological: Reports as per HPI Psychiatric: Reports hypersomnia, Reports sleep disturbances Endocrine: Reports fatigue Hematologic/Lymphatic: Reports as per HPI Allergic/Immunologic: Reports as per HPI Past Medical History Past Medical History: Atrial Fibrillation, Heart Failure, GERD/Reflux, Hyperlipidemia, Hypertension, Osteoarthritis (OA) Additional Past Medical History / Comment(s): PALPITATIONS, HX OF BRAIN ANEURYSM IN [place] osteoporosis, , SEE Dr. Penny H & P History of Any Multi-Drug Resistant Organisms: None Reported Past Surgical History: Appendectomy, Cardiac Ablation, Hysterectomy, Joint Replacement, Tonsillectomy Additional Past Surgical History / Comment(s): D & C'S, cardioversion x2, RT TKA, Past Anesthesia/Blood Transfusion Reactions: Motion Sickness, Postoperative Nausea & Vomiting (PONV) Additional Past Anesthesia/Blood Transfusion Reaction / Comment(s): SISTER =PONV, no hx. of transfusion problems Past Psychological History: No Psychological Hx Reported Smoking Status: Never smoker Past Alcohol Use History: None Reported Past Drug Use History: None Reported - Past Family History Father Family Medical History: AICD/Pacemaker Mother Family Medical History: Congestive Heart Failure (CHF), Diabetes Mellitus Medications and Allergies Home Medications Medication Instructions Recorded Confirmed Type lisinopriL [Zestril] 5 mg PO DAILY #30 tab 02/14/16 03/08/25 Rx Potassium Chloride [K-Tab ER] 10 meq PO DAILY 07/24/16 03/08/25 History Furosemide [Lasix] 20 mg PO BID 04/10/17 03/08/25 History Magnesium Chloride [Slow-Mag] 71.5 mg PO BID 04/10/17 03/08/25 History Metoprolol Tartrate [Lopressor] 12.5 mg PO DAILY 04/10/17 03/08/25 History Omeprazole [PriLOSEC] 20 mg PO DAILY 04/10/17 03/08/25 History Rivaroxaban [Xarelto] 20 mg PO 1700 04/10/17 03/08/25 History Spironolactone [Aldactone] 25 mg PO 1700 08/01/20 03/08/25 History Atorvastatin [Lipitor] 20 mg PO HS 04/15/23 03/08/25 History Calcium Carbonate [Calcium] 600 mg PO HS 04/15/23 03/08/25 History Cholecalciferol [Vitamin D3 (25 25 mcg PO HS 04/15/23 03/08/25 History Mcg = 1000 Iu)] Ubidecarenone [Coenzyme Q10] 200 mg PO HS 04/15/23 12/23/24 History Alendronate Sodium 70 mg PO SA 08/13/24 03/08/25 History Allergies Allergy/AdvReac Type Severity Reaction Status Date / Time CARDIOVERSION PAD AdvReac Unknown RED RASH, Uncoded 12/28/24 06:50 ITCHING FROM PAD USED ON CHEST FOR CARDIOVERSION. Physical Exam Vitals: Vital Signs Temp Pulse Resp BP Pulse Ox 03/08/25 14:36 97.7 F 86 16 129/95 97 Intake and Output 03/08/25 03/08/25 03/08/25 06:59 14:59 22:59 Other: Weight 124.284 kg The patient appeared well nourished and normally developed. Vital signs as documented. Body mass index is 49.3 and the patient has a Mallampati class II Head exam is unremarkable. No scleral icterus or corneal arcus noted. Neck is without jugular venous distension, thyromegaly, or carotid bruits. Carotid upstrokes are brisk bilaterally. Lungs are clear to auscultation and percussion. Cardiac exam reveals the PMI to be normally sized and situated. Rhythm is irregular consistent with atrial fibrillation, controlled rate. First and second heart sounds normal. No murmurs, rubs or gallops. Abdominal exam reveals normal bowel sounds, no masses, no organomegaly and no aortic enlargement. Extremities are nonedematous and both femoral and pedal pulses are normal. Examination of the skin revealed no evidence of significant rashes, suspicious appearing nevi or other concerning lesions. Neurologically, the patient is awake and alert and the patient does not have any focal neurological deficit. Cranial nerves are essentially intact. Assessment and Plan Plan: Chronic fatigue with limited hypersomnia. The patient carries an [place] score of 3. Nevertheless, based on her comorbidities which include chronic atrial fibrillation, the patient was referred for sleep apnea screening to rule out underlying sleep breathing disorder. Snoring Chronic atrial fibrillation, failed ablation and the patient remains in atrial fibrillation with a controlled rate Obesity with a BMI of 49.3 Hypertension Hyperlipidemia CHF with systolic heart failure ejection fraction of 35% Chronic lower extremity edema Osteoarthritis Osteoporosis Plan Encourage weight loss. Maintain good sleep hygiene measures. Patient is currently sleeping in a recliner. Treat comorbidities including chronic atrial fibrillation and optimize CHF Proceed with a screening home sleep study to evaluate the presence and severity of sleep apnea will make further recommendations accordingly. Sleep Note - Sleep Data ESS Total: 3 - Sleep Note Sleep Note: Temperature: 97.7 F Pulse Rate: 86 Respiratory Rate: 16 Blood Pressure: 129/95 SpO2: 97 Height: 5 ft 2.5 in Weight: 124.284 kg BMI: Neck Circumference: 14.5
== END ==
LOC: 3 N SLEEP 14:07
PROVIDERS: ATTEND Internal Medicine Critical Care Medicine
DX: G47.10 Hypersomnia, unspecified (principal); R53.83 Other fatigue; I48.20 Chronic atrial fibrillation, unspecified; R06.83 Snoring; E66.9 Obesity, unspecified; I11.0 Hypertensive heart disease with heart failure; I50.9 Heart failure, unspecified; E78.5 Hyperlipidemia, unspecified; R60.0 Localized edema; M19.90 Unspecified osteoarthritis, unspecified site; M81.0 Age-related osteoporosis without current pathological fracture; Z68.42 Body mass index [BMI] 45.0-49.9, adult; Z88.8 Allergy status to other drugs, medicaments and biological substances
CPT/HCPCS: 99211

== ENCOUNTER 2025-03-21 17:07 | Inpatient (IN) | payer MEDICARE, OTHER ==
[2025-03-21] MEDS ORDERED: MAGNESIUM SULFATE-D5W PMX 1 GM in DEXTROSE/WATER 1 100ML.BAG IVPB PRN (18:07)
[2025-03-21] MEDS: DOFETILIDE 250 MCG CAP PO SCH (18:11)
[2025-03-21] MEDS ORDERED: MAGNESIUM SULFATE-D5W PMX 1 GM in DEXTROSE/WATER 1 100ML.BAG IVPB SCH (18:15)
[2025-03-21 18:28] LABS: African American GFR (CKD) >90 (>60 ml/min/1.73 sqM); Anion Gap 9 mmol/L; Blood Urea Nitrogen 23 mg/dL (7-17); Calcium 9.1 mg/dL (8.4-10.2); Carbon Dioxide 25 mmol/L (22-30); Chloride 105 mmol/L (98-107); Glucose 103 mg/dL (74-99); Magnesium 1.9 mg/dL (1.6-2.3); Non-African American GFR(CKD) 80 (>60 ml/min/1.73 sqM); Potassium 3.7 mmol/L (3.5-5.1); Sodium 139 mmol/L (137-145)
[2025-03-21] MEDS: METOPROLOL TARTRATE 25 MG TAB PO SCH (21:57)
[2025-03-21] MEDS: ATORVASTATIN 20 MG TAB PO SCH (21:57)
[2025-03-21] MEDS: POTASSIUM CHLORIDE ER 20 MEQ TAB.ER PO STA (21:57)
[2025-03-22] MEDS: DOFETILIDE 250 MCG CAP PO SCH (06:08)
[2025-03-22] MEDS: MAGNESIUM OXIDE 400 MG TAB PO SCH (08:50)
[2025-03-22] MEDS: lisinopriL 5 MG TAB PO SCH (08:50)
[2025-03-22] MEDS: PANTOPRAZOLE 40 MG TABLET PO SCH (08:50)
[2025-03-22] MEDS ORDERED: METOPROLOL TARTRATE 25 MG TAB PO SCH (09:00)
[2025-03-22 10:06] LABS: African American GFR (CKD) >90 (>60 ml/min/1.73 sqM); Anion Gap 4 mmol/L; Blood Urea Nitrogen 20 mg/dL (7-17); Calcium 8.8 mg/dL (8.4-10.2); Carbon Dioxide 29 mmol/L (22-30); Chloride 106 mmol/L (98-107); Glucose 100 mg/dL (74-99); Non-African American GFR(CKD) >90 (>60 ml/min/1.73 sqM); Potassium 3.9 mmol/L (3.5-5.1); Sodium 139 mmol/L (137-145)
[2025-03-22] MEDS: FUROSEMIDE 40 MG TAB PO SCH (11:54)
--- NOTE | 2025-03-22 13:25 | P.PN ---
Subjective HISTORY OF PRESENT ILLNESS: This is a 69-year-old female who was brought in for elective dofetilide induction. Patient examined this morning at the bedside. Patient is maintaining atrial fibrillation this morning with controlled ventricular rate. She denies any chest pain or pressure. Denies any shortness of breath. Blood pressure stable. Labs from this morning are currently pending. PHYSICAL EXAM: VITAL SIGNS: Reviewed. GENERAL: Well-developed in no acute distress. NECK: Supple. No JVD or thyromegaly LUNGS: Respirations even and unlabored. Lungs essentially clear to auscultation bilaterally. HEART: Irregular rate and rhythm. S1 and S2 heard. EXTREMITIES: Normal range of motion. No clubbing or cyanosis. Peripheral pulses intact. No lower extremity edema ASSESSMENT: Persistent atrial fibrillation, status post dofetilide PLAN: Continue dofetilide at 250 mcg this evening Daily BMP and magnesium levels Resume oral Lasix 40 mg daily Continue additional cardiac medications Continue telemetry monitoring N.p.o. at midnight except medications. Anticoagulation and dofetilide should not be held. Patient to undergo cardioversion tomorrow with Dr. Penny Further recommendations pending patient course Nurse practitioner note has been reviewed by physician. Signing provider agrees with the documented findings, assessment, and plan of care documented by [employer] as a scribe. Objective - Vital Signs Vital signs: Vital Signs Temp 97.7 F 03/22/25 11:59 Pulse 78 03/22/25 11:59 Resp 18 03/22/25 11:59 BP 100/67 03/22/25 11:59 Pulse Ox 97 03/22/25 11:59 FiO2 Intake & Output 03/21/25 03/22/25 03/22/25 18:59 06:59 18:59 Intake Total 0 Balance 0 Weight 123 kg 122.5 kg Intake: Oral 0 - Labs CBC & Chem 7: 03/22/25 09:23 Labs: Abnormal Lab Results - Last 24 Hours (Table) 03/21/25 03/22/25 Range/Units 18:00 09:23 BUN 23 H 20 H (7-17) mg/dL Glucose 103 H 100 H (74-99) mg/dL
[2025-03-22] MEDS: SODIUM CHLORIDE 0.9% 1,000 ML IV SCH (14:15)
[2025-03-22] MEDS: RIVAROXABAN 20 MG TAB PO SCH (17:24)
[2025-03-22] MEDS: SPIRONOLACTONE 25 MG TAB PO SCH (17:24)
[2025-03-22] MEDS: LACTATED RINGERS 1,000 ML IV SCH (17:26)
[2025-03-22] MEDS: DOFETILIDE 250 MCG CAP PO ONE (17:57)
[2025-03-23] MEDS: DOFETILIDE 250 MCG CAP PO ONE ×2 (06:04→17:49)
[2025-03-23 08:24] LABS: African American GFR (CKD) >90 (>60 ml/min/1.73 sqM); Anion Gap 5 mmol/L; Blood Urea Nitrogen 21 mg/dL (7-17); Calcium 9.4 mg/dL (8.4-10.2); Carbon Dioxide 27 mmol/L (22-30); Chloride 106 mmol/L (98-107); Glucose 88 mg/dL (74-99); Non-African American GFR(CKD) >90 (>60 ml/min/1.73 sqM); Potassium 4.2 mmol/L (3.5-5.1); Sodium 138 mmol/L (137-145)
[2025-03-23] MEDS: SODIUM CHLORIDE 0.9% 1,000 ML IV ONE ×2 (09:48→10:02)
[2025-03-23] MEDS ORDERED: PROPOFOL 10 MG/ML 20 ML VIAL IV ONE (09:56)
--- NOTE | 2025-03-23 10:38 | P.EPPROC ---
- EP Procedure Note Electrophysiology Procedure Note: Diagnosis Persistent symptomatic atrial fibrillation that has failed A-fib ablation and antiarrhythmic drug therapy Admitted for initiation of dofetilide as an inpatient 250 mcg of dofetilide initiated. Electrical cardioversion after 4 doses planned BUN 21 creatinine 0.7 TSH normal at 1.2 Procedure Electrical cardioversion to sinus rhythm Details Successful electrical cardioversion with a 200 J biphasic shock in the AP configuration to sinus rhythm with PACs Plan Twelve-lead EKG on dofetilide 250 mcg twice daily Continue QT monitoring as an inpatient
[2025-03-23 11:29] VITALS: RESP 16
[2025-03-24] MEDS: DOFETILIDE 250 MCG CAP PO ONE (06:24)
[2025-03-24 08:34] LABS: African American GFR (CKD) >90 (>60 ml/min/1.73 sqM); Anion Gap 7 mmol/L; Blood Urea Nitrogen 19 mg/dL (7-17); Calcium 9.3 mg/dL (8.4-10.2); Carbon Dioxide 25 mmol/L (22-30); Chloride 105 mmol/L (98-107); Glucose 92 mg/dL (74-99); Magnesium 1.9 mg/dL (1.6-2.3); Non-African American GFR(CKD) 82 (>60 ml/min/1.73 sqM); Potassium 3.8 mmol/L (3.5-5.1); Sodium 137 mmol/L (137-145)
[2025-03-24 08:37] VITALS: BP 99/68; PULSE 56; TEMP 97.9
--- NOTE | 2025-03-24 11:59 | P.DS ---
Providers Date of admission: 03/21/25 17:07 Attending physician: Yonatan Penny Primary care physician: Zuleika Suero MD Hospital Course: HISTORY OF PRESENT ILLNESS: This is a 69-year-old female who was brought in for elective dofetilide induction. Patient examined this morning at the bedside. Patient is maintaining atrial fibrillation this morning with controlled ventricular rate. She denies any chest pain or pressure. Denies any shortness of breath. Blood pressure stable. Labs from this morning are currently pending. 03/24/2025 Patient is status post cardioversion yesterday with Dr. Penny. She is maintaining sinus mechanism this morning. QTa remained stable. Patient without complaints of chest pain or shortness of breath. She is complaining of discomfort and itching to the site where her cardioversion pad was placed to her back. The patient was deemed stable for discharge home today from a cardiac standpoint. Please see EMR for further hospital course details. Discharge diagnosis Persistent atrial fibrillation, status post dofetilide Status post cardioversion 03/23/2025 Nurse practitioner note has been reviewed by physician. Signing provider agrees with the documented findings, assessment, and plan of care documented by [employer] as a scribe. Plan - Discharge Summary New Discharge Prescriptions: New Furosemide [Lasix] 40 mg PO DAILY #30 tab Magnesium Oxide [Mag-Ox] 400 mg PO DAILY #30 tab Dofetilide [Tikosyn] 250 mcg PO Q12HR #60 cap Spironolactone [Aldactone] 50 mg PO 1700 #60 tab Dofetilide [Tikosyn] 250 mcg PO Q12HR #28 cap SILVER sulfADIAZINE CREAM [Silvadene Cream] 1 applic TOPICAL DAILY 30 Days #1 cream Continue lisinopriL [Zestril] 5 mg PO DAILY #30 tab Metoprolol Tartrate [Lopressor] 25 mg PO BID Atorvastatin [Lipitor] 20 mg PO HS Alendronate Sodium 70 mg PO SA@0800 Rivaroxaban [Xarelto] 20 mg PO DAILY@1700 Cholecalciferol [Vitamin D3 (25 Mcg = 1000 Iu)] 25 mcg PO HS Calcium Carbonate [Calcium] 600 mg PO HS Omeprazole [PriLOSEC] 20 mg PO DAILY Discontinued Potassium Chloride [K-Tab ER] 10 meq PO DAILY Furosemide [Lasix] 40 mg PO BID@0800,1700 Magnesium Chloride [Slow-Mag] 71.5 mg PO BID Spironolactone [Aldactone] 25 mg PO DAILY@1700 Discharge Medication List lisinopriL [Zestril] 5 mg PO DAILY #30 tab 02/14/16 [Rx] Metoprolol Tartrate [Lopressor] 25 mg PO BID 04/10/17 [History] Atorvastatin [Lipitor] 20 mg PO HS 04/15/23 [History] Calcium Carbonate [Calcium] 600 mg PO HS 04/15/23 [History] Cholecalciferol [Vitamin D3 (25 Mcg = 1000 Iu)] 25 mcg PO HS 04/15/23 [History] Alendronate Sodium 70 mg PO SA@0800 08/13/24 [History] Omeprazole [PriLOSEC] 20 mg PO DAILY 03/21/25 [History] Rivaroxaban [Xarelto] 20 mg PO DAILY@1700 03/21/25 [History] Dofetilide [Tikosyn] 250 mcg PO Q12HR #28 cap 03/24/25 [Rx] Dofetilide [Tikosyn] 250 mcg PO Q12HR #60 cap 03/24/25 [Rx] Furosemide [Lasix] 40 mg PO DAILY #30 tab 03/24/25 [Rx] Magnesium Oxide [Mag-Ox] 400 mg PO DAILY #30 tab 03/24/25 [Rx] SILVER sulfADIAZINE CREAM [Silvadene Cream] 1 applic TOPICAL DAILY 30 Days #1 cream 03/24/25 [Rx] Spironolactone [Aldactone] 50 mg PO 1700 #60 tab 03/24/25 [Rx] Follow up Appointment(s)/Referral(s): Yonatan Penny MD [STAFF PHYSICIAN] - 1 Week (office will call with an appointment. ) Patient Instructions/Handouts: A-fib (Atrial Fibrillation) (DC)
--- NOTE | 2025-03-24 16:24 | P.DS ---
Providers Date of admission: 03/21/25 17:07 Attending physician: Yonatan Penny Primary care physician: Zuleika Suero MD Hospital Course: Patient was admitted for initiation of Tikosyn as an inpatient for management of symptomatic persistent atrial fibrillation that has failed medical treatment and ablation. Her creatinine clearance was in the mid 90s. She was initiated on 250 mcg twice daily of dofetilide Subsequently after 4 doses she underwent electrical cardioversion In sinus rhythm her absolute QT interval was between 470-480 ms after 6 doses Sodium 137 potassium 3.8 BUN 19 and creatinine 0.75 TSH 1.2, normal Detailed discussion with the patient regarding the do's and don'ts of Tikosyn use. A complete Tikosyn education was given and the patient expressed an understanding. At discharge the medications were Dofetilide 250 mcg twice daily Mag oxide 400 mg p.o. daily Spironolactone 50 mg p.o. daily Lisinopril 5 mg daily Metoprolol tartrate 25 mg twice daily Xarelto 20 mg daily Atorvastatin 20 mg nightly Lasix 40 mg daily, lower dose Plan follow-up with Dr. White in a few weeks Follow-up with Dr. Penny in 4 months Plan - Discharge Summary New Discharge Prescriptions: New Furosemide [Lasix] 40 mg PO DAILY #30 tab Magnesium Oxide [Mag-Ox] 400 mg PO DAILY #30 tab Dofetilide [Tikosyn] 250 mcg PO Q12HR #60 cap Spironolactone [Aldactone] 50 mg PO 1700 #60 tab Dofetilide [Tikosyn] 250 mcg PO Q12HR #28 cap SILVER sulfADIAZINE CREAM [Silvadene Cream] 1 applic TOPICAL DAILY 30 Days #1 cream Continue lisinopriL [Zestril] 5 mg PO DAILY #30 tab Metoprolol Tartrate [Lopressor] 25 mg PO BID Atorvastatin [Lipitor] 20 mg PO HS Alendronate Sodium 70 mg PO SA@0800 Rivaroxaban [Xarelto] 20 mg PO DAILY@1700 Cholecalciferol [Vitamin D3 (25 Mcg = 1000 Iu)] 25 mcg PO HS Calcium Carbonate [Calcium] 600 mg PO HS Omeprazole [PriLOSEC] 20 mg PO DAILY Discontinued Potassium Chloride [K-Tab ER] 10 meq PO DAILY Furosemide [Lasix] 40 mg PO BID@0800,1700 Magnesium Chloride [Slow-Mag] 71.5 mg PO BID Spironolactone [Aldactone] 25 mg PO DAILY@1700 Discharge Medication List lisinopriL [Zestril] 5 mg PO DAILY #30 tab 02/14/16 [Rx] Metoprolol Tartrate [Lopressor] 25 mg PO BID 04/10/17 [History] Atorvastatin [Lipitor] 20 mg PO HS 04/15/23 [History] Calcium Carbonate [Calcium] 600 mg PO HS 04/15/23 [History] Cholecalciferol [Vitamin D3 (25 Mcg = 1000 Iu)] 25 mcg PO HS 04/15/23 [History] Alendronate Sodium 70 mg PO SA@0800 08/13/24 [History] Omeprazole [PriLOSEC] 20 mg PO DAILY 03/21/25 [History] Rivaroxaban [Xarelto] 20 mg PO DAILY@1700 03/21/25 [History] Dofetilide [Tikosyn] 250 mcg PO Q12HR #28 cap 03/24/25 [Rx] Dofetilide [Tikosyn] 250 mcg PO Q12HR #60 cap 03/24/25 [Rx] Furosemide [Lasix] 40 mg PO DAILY #30 tab 03/24/25 [Rx] Magnesium Oxide [Mag-Ox] 400 mg PO DAILY #30 tab 03/24/25 [Rx] SILVER sulfADIAZINE CREAM [Silvadene Cream] 1 applic TOPICAL DAILY 30 Days #1 cream 03/24/25 [Rx] Spironolactone [Aldactone] 50 mg PO 1700 #60 tab 03/24/25 [Rx] Follow up Appointment(s)/Referral(s): Yonatan Penny MD [STAFF PHYSICIAN] - 1 Week (office will call with an appointment. ) Patient Instructions/Handouts: A-fib (Atrial Fibrillation) (DC) Discharge Disposition: HOME SELF-CARE
[2025-03-24] MEDS ORDERED: DOFETILIDE 250 MCG CAP PO ONE (18:00)
== END 2025-03-24 12:52 | disposition home or self-care (01) | DRG 310 ==
LOC: 3SCARD 17:07
PROVIDERS: ADMIT Internal Medicine Clinical Cardiac Electrophysiology; ATTEND Internal Medicine Clinical Cardiac Electrophysiology
PROC: 5A2204Z Restoration of Cardiac Rhythm, Single (ICD-10-PCS; principal; 2025-03-23 13:00)
DX: I48.19 Other persistent atrial fibrillation (principal); I42.9 Cardiomyopathy, unspecified; I10 Essential (primary) hypertension; E78.5 Hyperlipidemia, unspecified; F17.210 Nicotine dependence, cigarettes, uncomplicated; Z79.01 Long term (current) use of anticoagulants; Z79.899 Other long term (current) drug therapy
CPT/HCPCS: 80048; 83735; 84443; 92960